=== PATIENT | female | born 1950 | race Caucasian/White ===

== ENCOUNTER → 2017-06-01 07:43 | Outpatient (CLI) | payer MEDICARE, OTHER, SELFPAY ==
--- NOTE | 2017-06-01 07:46 | CT_ITS ---
STUDY: CT ABDOMEN WITHOUT CONTRAST REASON FOR EXAM: Female, 67 years old. History of adrenal adenoma. RADIATION DOSAGE (If Supplied By Facility): CTDIvol = ( 24.17 ) mGy, DLP = ( 562.74 ) mGycm TECHNIQUE: Transaxial images were obtained without intravenous contrast, and oral contrast. Sagittal and coronal images were reconstructed. Individualized dose optimization techniques were used for this CT. COMPARISON: Comparison is made with prior study dated November 20, 2016. FINDINGS: The visualized lung bases are unremarkable. Stable thickening of the right side of the pericardium inferiorly. Normal liver. There are surgical clips in the gallbladder fossa consistent with a prior cholecystectomy. Normal spleen. Normal pancreas. There is a small, circumscribed, smooth, low attenuation left adrenal mass, consistent with an adrenal adenoma. This measures 2.2 cm. Normal right adrenal gland. Normal right kidney. Normal left kidney. There is a small hiatal hernia. Normal small intestine. Normal colon. The appendix is visualized and appears normal. Normal abdominal aorta. Normal inferior vena cava. Normal retroperitoneum. Normal abdominal wall. Normal osseous structures. CT/Abdomen without IV Contrast IMPRESSION: Stable left adrenal nodule most likely representing adenoma. Electronically Signed: Charles Das MD at 10:52 EST Tel [phone], Service support ,
== END ==
PROVIDERS: Family Provider Family Medicine; PCP Family Medicine; Visit Provider Family Medicine
DX: D35.00 Benign neoplasm of unspecified adrenal gland (principal)
CPT/HCPCS: 74150

== ENCOUNTER → 2017-07-21 09:47 | Outpatient (CLI) | payer MEDICARE, OTHER, SELFPAY ==
--- NOTE | 2017-07-21 09:55 | HPBI_ITS ---
MAMMOGRAPHY - BILATERAL SCREENING REASON FOR EXAM: Female, 67 years old. Routine annual screening examination. PERTINENT HISTORY: Grandmother with breast cancer. TECHNIQUE: Digital bilateral breast akira (3D mammographic acquisition) in the CC and MLO projections. 2-D mediolateral oblique (MLO) and craniocaudad (CC) views of both breasts were obtained. CAD: Full Field Digital Mammography with Computer Added Detection was performed. COMPARISON: Comparison is made with prior study dated March 11, 2016 and March 18, 2013. FINDINGS: Breast Composition: There are scattered areas of fibroglandular density. There are no dominant masses or suspicious calcifications. No other significant abnormalities are identified. There has been no significant change since the prior study. HPBI/SCREENING MAMM (CAD), BILAT IMPRESSION: Stable bilateral screening mammogram. Yearly follow-up mammogram recommended. (A) ASSESSMENT CATEGORY: BIRADS Category 1: Negative. A letter regarding these results will be sent to the patient by the facility within 30 days. Approximately 10% of breast cancers are not detected by mammography. A normal mammogram should not delay biopsy of a clinically suspicious abnormality. [id number] Electronically Signed: Charles Das MD at 12:27 EDT Tel [phone], Service support ,
== END ==
PROVIDERS: Family Provider Family Medicine; PCP Family Medicine; Visit Provider Family Medicine
DX: Z12.31 Encounter for screening mammogram for malignant neoplasm of breast (principal)
CPT/HCPCS: 77063; 77067

== ENCOUNTER → 2018-03-23 08:31 | Outpatient (CLI) | payer MEDICARE, OTHER, SELFPAY ==
[2018-03-23 11:03] LABS: Anion Gap 8 (5-15); BUN 13 mg/dL (7-18); BUN/Creat Ratio 11.9 RATIO (10-20); Calcium,Total 8.7 mg/dL (8.5-10.1); Chloride 106 mmol/L (98-107); Cholesterol 209 mg/dL (200); Creatinine, Serum 1.09 mg/dL (0.55-1.02); EST Glomerular Filtration Rate 53 mL/min (>60); Est Glom Filt Rate - Afr Amer 65 mL/min (>60); Glucose 120 mg/dL (74-106); High Density Lipoprotein 54 mg/dL; Potassium 4.1 mmol/L (3.5-5.1); Sodium Level 143 mmol/L (136-145); Triglycerides 128 mg/dL; Very Low Density Lipoprotein 26 mg/dL (5-40)
[2018-03-23 11:07] LABS: Hemoglobin A1c 6.6 % (4.2-6.3)
== END ==
PROVIDERS: Family Provider Family Medicine; PCP Family Medicine; Referring Provider Family Medicine; Visit Provider Family Medicine
DX: E11.9 Type 2 diabetes mellitus without complications (principal); I10 Essential (primary) hypertension
CPT/HCPCS: 36415; 80048; 80061; 83036

== ENCOUNTER → 2018-10-12 07:13 | Outpatient (CLI) | payer MEDICARE, OTHER, SELFPAY ==
--- NOTE | 2018-10-12 07:16 | BI_ITS ---
MAMMOGRAPHY - BILATERAL SCREENING REASON FOR EXAM: Female, 68 years old. Routine annual screening examination. PERTINENT HISTORY: Grandmother with breast cancer. TECHNIQUE: Digital bilateral breast remi (3D mammographic acquisition) in the CC and MLO projections. 2-D mediolateral oblique (MLO) and craniocaudad (CC) views of both breasts were obtained. CAD: Full Field Digital Mammography with Computer Added Detection was performed. COMPARISON: Comparison is made with prior study dated July 21, 2017 and March 11, 2016. FINDINGS: Breast Composition: There are scattered areas of fibroglandular density. There are no dominant masses or suspicious calcifications. No other significant abnormalities are identified. There has been no significant change since the prior study. BI/SCREEN MAMM (CAD) W/REMI BILAT IMPRESSION: Stable bilateral screening mammogram. Yearly follow-up mammogram recommended. (A) ASSESSMENT CATEGORY: BIRADS Category 1: Negative. A letter regarding these results will be sent to the patient by the facility within 30 days. Approximately 10% of breast cancers are not detected by mammography. A normal mammogram should not delay biopsy of a clinically suspicious abnormality. [id number] Electronically Signed: Charles Das, at 9:17 EDT , Service support ,
== END ==
PROVIDERS: Family Provider Family Medicine; PCP Family Medicine; Referring Provider Family Medicine; Visit Provider Family Medicine
DX: Z12.31 Encounter for screening mammogram for malignant neoplasm of breast (principal); Z80.3 Family history of malignant neoplasm of breast
CPT/HCPCS: 77063; 77067

== ENCOUNTER → 2020-06-05 10:18 | Outpatient (CLI) | payer MEDICARE, OTHER, SELFPAY ==
[2020-06-05 12:28] LABS: ALB/GLOB Ratio 0.9 RATIO (0.9-2.4); AST(SGOT) 15 U/L (15-37); Alanine Aminotransfer ALT/SGPT 32 U/L (13-56); Albumin, Serum 3.6 g/dL (3.2-5.0); Alkaline Phosphatase 91 U/L (45-117); Anion Gap 6 (5-15); BUN 11 mg/dL (7-18); BUN/Creat Ratio 10.7 RATIO (10-20); Chloride 107 mmol/L (98-107); Cholesterol 231 mg/dL (200); Creatinine, Serum 1.03 mg/dL (0.55-1.02); EST Glomerular Filtration Rate 57 mL/min (>60); Est Glom Filt Rate - Afr Amer 69 mL/min (>60); Globulin 4.2 g/dL (2.2-4.2); Glucose 159 mg/dL (74-106); High Density Lipoprotein 59 mg/dL; Potassium 3.5 mmol/L (3.5-5.1); Protein, Total 7.8 g/dL (6.4-8.2); Sodium Level 140 mmol/L (136-145); Triglycerides 145 mg/dL; Very Low Density Lipoprotein 29 mg/dL (5-40)
[2020-06-05 12:36] LABS: Hemoglobin A1c 7.1 % (3.8-5.6)
[2020-06-05 12:54] LABS: Microalbumin,Random Urine 6.3 mg/L (NO RANGE EST.); Microalbumin:Creatinine Ratio 12.1 mg/g CRE (<30 mg/g CRE)
== END ==
PROVIDERS: PCP Family Medicine; Referring Provider Family Medicine; Visit Provider Family Medicine
DX: I10 Essential (primary) hypertension (principal); E11.9 Type 2 diabetes mellitus without complications
CPT/HCPCS: 36415; 80053; 80061; 82043; 82570; 83036

== ENCOUNTER → 2020-12-25 11:03 | Outpatient (CLI) | payer MEDICARE, OTHER, SELFPAY ==
[2020-12-25 13:04] LABS: AST(SGOT) 12 U/L (15-37); Alanine Aminotransfer ALT/SGPT 22 U/L (13-56); Cholesterol 201 mg/dL (200); High Density Lipoprotein 59 mg/dL; Triglycerides 114 mg/dL; Very Low Density Lipoprotein 23 mg/dL (5-40)
== END ==
PROVIDERS: PCP Family Medicine; Referring Provider Family Medicine; Visit Provider Family Medicine
DX: E11.69 Type 2 diabetes mellitus with other specified complication (principal); E78.5 Hyperlipidemia, unspecified
CPT/HCPCS: 36415; 80061; 84450; 84460

== ENCOUNTER → 2021-01-31 13:37 | Outpatient (CLI) | payer MEDICARE, OTHER, SELFPAY ==
--- NOTE | 2021-01-31 13:48 | BI_ITS ---
MAMMOGRAPHY - BILATERAL SCREENING REASON FOR EXAM: Female, 70 years old. Routine annual screening examination. PERTINENT HISTORY: Grandmother with breast cancer. TECHNIQUE: Digital bilateral breast remi (3D mammographic acquisition) in the CC and MLO projections. 2-D mediolateral oblique (MLO) and craniocaudad (CC) views of both breasts were obtained. CAD: Full Field Digital Mammography with Computer Added Detection was performed. COMPARISON: Comparison is made with prior study dated 10/12/2018 and 07/21/2017. FINDINGS: Breast Composition: There are scattered areas of fibroglandular density. There are no dominant masses or suspicious calcifications. Focal area of asymmetry is seen in the upper deep lateral aspect of the right breast. The patient will be recalled for 90 degree lateral view of the right breast as well as compression spot views in the craniocaudad projection. No other significant abnormalities are identified. BI/SCRN MAMM (CAD)W/REMI BILAT IMPRESSION: Asymmetry in the upper outer aspect of the right breast as described. The patient will be recalled for additional views. Recall Side: Right Breast ASSESSMENT CATEGORY: BIRADS Category 0: Incomplete. Need additional imaging evaluation. A letter regarding these results will be sent to the patient by the facility within 30 days. Approximately 10% of breast cancers are not detected by mammography. A normal mammogram should not delay biopsy of a clinically suspicious abnormality. [id number] Electronically Signed: Charles Das MD at 14:23 EDT , Service support ,
== END ==
PROVIDERS: PCP Family Medicine; Visit Provider Family Medicine
DX: Z12.31 Encounter for screening mammogram for malignant neoplasm of breast (principal)
CPT/HCPCS: 77063; 77067

== ENCOUNTER → 2021-02-08 08:49 | Outpatient (CLI) | payer MEDICARE, OTHER, SELFPAY ==
--- NOTE | 2021-02-08 08:57 | BI_ITS ---
MAMMOGRAPHY - UNILATERAL DIAGNOSTIC: RIGHT BREAST REASON FOR EXAM: Female, 70 years old. ASYMMETRY RT LATERAL BREAST PERTINENT HISTORY: Non-contributory. TECHNIQUE: Digital examination. Mediolateral oblique (MLO) and craniocaudad (CC) views of the breast were obtained. CAD: CAD was not performed on this study. COMPARISON: 01/31/2021 FINDINGS: Breast Composition: There are scattered areas of fibroglandular density. Focal compression views do not confirm mass in the upper outer quadrant right breast most consistent with normal breast parenchyma. No other significant abnormalities are identified. BI/DIAG MAMM W/CAD, UNILAT IMPRESSION: Stable unilateral diagnostic mammogram. ASSESSMENT CATEGORY: BIRADS Category 1: Negative. A letter regarding these results will be sent to the patient by the facility within 30 days. FOLLOW-UP RECOMMENDATION: Yearly follow-up mammogram recommended. (A) Approximately 10% of breast cancers are not detected by mammography. A normal mammogram should not delay biopsy of a clinically suspicious abnormality. Electronically Signed: Enoc Alvarez MD at 9:38 EDT Tel , Service support ,
== END ==
PROVIDERS: PCP Family Medicine; Referring Provider Family Medicine; Visit Provider Family Medicine
DX: R92.8 Other abnormal and inconclusive findings on diagnostic imaging of breast (principal)
CPT/HCPCS: 77061; 77065; G0279

== ENCOUNTER → 2021-12-23 | Outpatient (CLI) | payer MEDICARE, OTHER, SELFPAY ==
[2021-12-23 12:46] LABS: AST(SGOT) 16 U/L (15-37); Alanine Aminotransfer ALT/SGPT 27 U/L (13-56); Albumin, Serum 3.4 g/dL (3.2-5.0); Alkaline Phosphatase 72 U/L (45-117); Anion Gap 4 (5-15); BUN 12 mg/dL (7-18); BUN/Creat Ratio 12.3 RATIO (10-20); Bilirubin, Direct 0.08 mg/dL (0.00-0.30); Calcium,Total 8.8 mg/dL (8.5-10.1); Chloride 105 mmol/L (98-107); Cholesterol 206 mg/dL (200); Creatinine, Serum 0.97 mg/dL (0.55-1.02); EST Glomerular Filtration Rate 60 mL/min (>60); Est Glom Filt Rate - Afr Amer 73 mL/min (>60); Globulin 3.9 g/dL (2.2-4.2); Glucose 114 mg/dL (74-106); High Density Lipoprotein 62 mg/dL; Potassium 3.7 mmol/L (3.5-5.1); Protein, Total 7.3 g/dL (6.4-8.2); Sodium Level 139 mmol/L (136-145); Triglycerides 114 mg/dL; Very Low Density Lipoprotein 23 mg/dL (5-40)
== END | disposition home or self-care (01) ==
LOC: MFPLAB 09:55
PROVIDERS: PCP Family Medicine; Visit Provider Family Medicine
DX: E11.9 Type 2 diabetes mellitus without complications (principal)
CPT/HCPCS: 36415; 80048; 80061; 80076

== ENCOUNTER 2022-02-17 12:34 | Emergency (ER) | payer MEDICARE, OTHER, SELFPAY ==
[2022-02-17 12:35] VITALS: BP 179/84; PULSE 84; RESP 16; TEMP 35.9; O2SAT 96; BMI 27.3
--- NOTE | 2022-02-17 12:44 | RAD_ITS ---
STUDY: X-RAY - LEFT WRIST REASON FOR EXAM: Female, 71 years old. Wrist pain following a fall. TECHNIQUE: 3 view(s) of the wrist were obtained. COMPARISON: None. FINDINGS: Normal visualized distal radius and ulna. Normal radiocarpal articulation. Normal distal radioulnar articulation. Normal carpal bones. Normal carpal articulations. Normal carpometacarpal articulation of the thumb. Normal second through fifth carpometacarpal articulations. Normal visualized metacarpal bones. Soft tissue swelling. RAD/Wrist min 3 Views IMPRESSION: Soft tissue swelling. Electronically Signed: Charles Das MD at 13:21 EDT ,
--- NOTE | 2022-02-17 12:51 | ED.VIS.FALL ---
HPI HPI - Fall History of Present Illness Chief Complaint: Fall Informant: patient Occured/Mechanism Occurred: Today Pain/Injury Pain Location: upper extremity and lower extremity Quality of Pain: Aching Current Severity: Mild Maximum Severity: Moderate Narrative Narrative: Patient presents secondary to fall at home. She reportedly fell after tripping on a rug at home. She complains of pain to her left wrist as well as her right wilson. She did not strike her head. She is not on anticoagulants. She is right-hand dominant. PFSH PFSH Medical History Hx of gastroesophageal reflux (GERD) Hypertension Home Medications lisinopril 10 mg tablet 10 mg PO DAILY 02/17/22 [History Last Taken Unknown] pantoprazole 40 mg tablet,delayed release 40 mg PO DAILY 02/17/22 [History Last Taken Unknown] Allergy/AdvReac Type Severity Reaction Status Date / Time metoprolol [From Toprol XL] AdvReac Other Verified 02/17/22 12:34 Social History Smoking Status: Never smoker ROS ROS ED Constitutional Constitutional ED: Denies chills or fever(s) Eyes Eyes: Denies change in vision or discharge from eye(s) ENT ENT ED: Denies discharge from eye(s), rhinorrhea or sore throat Cardiovascular Cardiovascular: Denies chest pain or palpitations Respiratory/Chest Respiratory/Chest: Denies cough or dyspnea Gastrointestinal Gastrointestinal: Denies abdominal pain, diarrhea, nausea or vomiting Genitourinary Genitourinary ED: Denies dysuria Musculoskeletal Musculoskeletal: Reports extremity pain; Denies back pain Integumentary Denies Abrasions or rash Neurologic Neurologic: Denies headache(s), paresthesias or weakness Psychiatric Psychiatric: Denies anxiety or depression Allergic/Immunologic Allergic/Immunologic ED: Denies lip swelling or urticaria EXAM Physical Exam Const Vital Signs: 02/17/22 12:35 02/17/22 13:30 Temperature 96.6 F L Temperature Source Temporal Pulse Rate 84 Respiratory Rate 16 Respiratory Effort Normal Non-Labored Respiratory Depth Normal Respiratory Pattern Normal Blood Pressure 179/84 H Blood Pressure Mean 115 Pulse Ox 96 Oxygen Delivery Method Room Air Room Air Positive well nourished and well developed General Appearance ED: well developed HEENT Reports normocephalic atraumatic Eyes PERRL and EOMs intact bilaterally Neck full ROM and no lymphadenopathy Chest Wall inspection of chest normal and palpation of chest normal Resp normal respiratory effort and clear to auscultation bilaterally Cardio regular rate and regular rhythm GI non-tender Back/Spine no CVA tenderness Extremity Extremity Narrative: Mild tender palpation of the left wrist. Good range of motion and cap refill distally. No significant edema or deformity. Mild tenderness to palpation on the lateral portion of the right lower leg. No edema or ecchymosis noted. Good range of motion at the knee and ankle. Neuro oriented x3, moves all extremities, no focal motor deficits and no sensory deficits noted Psych mental status grossly normal MDM MDM MDM Narrative Medical decision making narrative: X-rays of the left wrist and right tib-fib obtained. Radiography Diagnostic Testing: Clinical Impression(s) from Imaging Studies Wrist X-Ray 02/17/22 12:44 IMPRESSION: Soft tissue swelling. Electronically Signed: Charles Das MD at 13:21 EDT , Tibia/Fibula X-Ray 02/17/22 13:00 IMPRESSION: No acute abnormality is seen. Calcaneal spurs. Electronically Signed: Charles Das MD at 13:23 EDT , Treatment and Re-Evaluation Narrative: X-rays per my interpretation reveal no acute fracture. Radiology interpretation is reviewed. Aldo wrap is applied to the left wrist. Patient will continue supportive care. Return instructions provided. Discharge Plan Triage Chief Complaint: Fall ED Provider: Krystin Summers Dx/Rx/DC Orders Clinical Impression: Fall, Left wrist sprain, Contusion of leg, right Instructions: ED Mechanical Fall, ED Muscle Strain, Extremity, ED Wrist Sprain Prescriptions: No Action pantoprazole 40 mg tablet,delayed release (DR/EC) 40 mg PO DAILY Label Comments: TAKE 1 TABLET BY MOUTH ONCE DAILY lisinopril 10 mg tablet 10 mg PO DAILY Label Comments: TAKE 1 TABLET BY MOUTH ONCE DAILY Primary Care Provider: Bria Westbrook Referrals: Bria Westbrook MD [Primary Care Provider] - As Needed Disposition Disposition: Home, Self Care
--- NOTE | 2022-02-17 13:00 | RAD_ITS ---
STUDY: X-RAY - RIGHT TIBIA AND FIBULA REASON FOR EXAM: Female, 71 years old. Pain following injury. TECHNIQUE: 4 view(s) of the tibia and fibula were obtained. COMPARISON: None. FINDINGS: Normal visualized tibia. Normal visualized fibula. Calcaneal spurs. The soft tissue structures are unremarkable. RAD/Tibia & Fibula 2 Views IMPRESSION: No acute abnormality is seen. Calcaneal spurs. Electronically Signed: Charles Das MD at 13:23 EDT ,
[2022-02-17 14:22] VITALS: RESP 16
== END 2022-02-17 14:28 | disposition home or self-care (01) ==
PROVIDERS: Emergency Provider Emergency Medicine; PCP Family Medicine; Visit Provider Emergency Medicine
DX: S63.92XA Sprain of unspecified part of left wrist and hand, initial encounter (principal); S80.11XA Contusion of right lower leg, initial encounter; I10 Essential (primary) hypertension; Z79.899 Other long term (current) drug therapy; W01.0XXA Fall on same level from slipping, tripping and stumbling without subsequent striking against object, initial encounter
CPT/HCPCS: 73110; 73590; 99282

== ENCOUNTER → 2022-02-20 | Outpatient (CLI) | payer MEDICARE, OTHER, SELFPAY ==
--- NOTE | 2022-02-20 12:51 | BI_ITS ---
MAMMOGRAPHY - BILATERAL SCREENING 3-D TOMOSYNTHESIS REASON FOR EXAM: Female, 71 years old. Routine screening PERTINENT HISTORY: Grandmother with breast cancer.. TECHNIQUE: 2-D mammograms and 3-D Tomosynthesis of the breast (s) were performed. CAD was performed. COMPARISON: 2017 FINDINGS: The breast composition is composed of scattered fibroglandular density. Scattered benign calcifications are seen. No dense spiculated masses or suspicious microcalcifications are identified. No architectural distortion is identified. There is no skin thickening or retraction. There has been no significant change since the prior study. BI/SCRN MAMM (CAD)W/REMI BILAT IMPRESSION: No mammographic signs of malignancy. Routine yearly mammograms recommended. ASSESSMENT CATEGORY: BIRADS Category 2: Benign. A letter regarding these results will be sent to the patient by the facility within 30 days. FOLLOW UP RECOMMENDATION: Yearly follow up mammogram recommended. (A) Approximately 10% of breast cancers are not detected by mammography. A normal mammogram should not delay biopsy of a clinically suspicious abnormality. Electronically Signed: Boni Bonilla MD at 13:46 EDT ,
--- NOTE | 2022-02-20 12:55 | BD_ITS ---
STUDY: DUAL ENERGY X-RAY ABSORPTIOMETRY / DXA REASON FOR EXAM: Female, 71 years old. [id number] TECHNIQUE: Bone Mineral Density (BMD) measurements of lumbar spine and bilateral hips were obtained. COMPARISON: None. FINDINGS: Lumbar Spine (L1-L4): g/cm2 (0.924) / T-score (-1.1) / Z-score (1.0) Findings are suggestive of osteopenia with a low fracture risk. Left Femur Total: g/cm2 (0.818) / T-score (-1.0) / Z-score (0.5) Left Femoral Neck: g/cm2 (0.679) / T-score (-1.5) / Z-score (0.3) Right Femur Total: g/cm2 (0.861) / T-score (-0.7) / Z-score (0.8) Right Femoral Neck: g/cm2 (0.722) / T-score (-1.1) / Z-score (0.8) BD/Dexa Bone Density Study IMPRESSION: The patient is considered osteopenic as outlined below according to World Dylan Organization (WHO) criteria with a low fracture risk. Reference Information: The T-score is the number of standard deviations above or below the standard which is normal for young adults at their peak bone mineral density. The World Health Organization (WHO) interprets the T-scores as follows: Above -1 Normal bone density Between -1 and -2.5 Osteopenia Equal to / or below -2.5 Osteoporosis As a practical clinical guideline, osteopenia may be graded as follows: Mild -1 through -1.5 Moderate -1.6 through -2.0 Severe -2.1 through -2.4 The Z-score is the number of standard deviations above or below age-matched controls. A Z-score of less than -1.5 would be considered abnormal. References: 1. NIH Osteoporosis and Related Bone Diseases www osteo.org 2. International Society for Clinical Densitometry www iscd.org 3. National Osteoporosis Foundation www nof.org Electronically Signed: Charles Das MD at 14:09 EDT ,
== END | disposition home or self-care (01) ==
LOC: OPBD 12:49
PROVIDERS: PCP Family Medicine; Visit Provider Family Medicine
DX: N95.9 Unspecified menopausal and perimenopausal disorder (principal); Z12.31 Encounter for screening mammogram for malignant neoplasm of breast
CPT/HCPCS: 77063; 77067; 77080

== ENCOUNTER → 2022-12-30 | Outpatient (CLI) | payer MEDICARE, OTHER, SELFPAY ==
[2022-12-30 12:36] LABS: AST(SGOT) 13 U/L (15-37); Alanine Aminotransfer ALT/SGPT 24 U/L (13-56); Albumin, Serum 3.6 g/dL (3.2-5.0); Alkaline Phosphatase 83 U/L (45-117); Anion Gap 6 (5-15); BUN 12 mg/dL (7-18); BUN/Creat Ratio 11.4 RATIO (10-20); Bilirubin, Direct 0.09 mg/dL (0.00-0.30); Calcium,Total 8.9 mg/dL (8.5-10.1); Chloride 106 mmol/L (98-107); Cholesterol 212 mg/dL (200); Creatinine, Serum 1.05 mg/dL (0.55-1.02); EST Glomerular Filtration Rate 55 mL/min (>60); Est Glom Filt Rate - Afr Amer 67 mL/min (>60); Globulin 3.8 g/dL (2.2-4.2); Glucose 149 mg/dL (74-106); High Density Lipoprotein 64 mg/dL; Potassium 3.8 mmol/L (3.5-5.1); Protein, Total 7.4 g/dL (6.4-8.2); Sodium Level 140 mmol/L (136-145); Triglycerides 95 mg/dL; Very Low Density Lipoprotein 19 mg/dL (5-40)
== END | disposition home or self-care (01) ==
LOC: MFPLAB 10:01
PROVIDERS: PCP Family Medicine; Visit Provider Family Medicine
DX: E11.9 Type 2 diabetes mellitus without complications (principal)
CPT/HCPCS: 36415; 80048; 80061; 80076

== ENCOUNTER → 2023-02-26 | Outpatient (CLI) | payer MEDICARE, OTHER, SELFPAY ==
--- NOTE | 2023-02-26 09:11 | BI_ITS ---
MAMMOGRAPHY - BILATERAL SCREENING REASON FOR EXAM: Female, 72 years old. Routine annual screening examination. PERTINENT HISTORY: Grandmother with breast cancer. TECHNIQUE: Digital bilateral breast remi (3D mammographic acquisition) in the CC and MLO projections. 2-D mediolateral oblique (MLO) and craniocaudad (CC) views of both breasts were obtained. CAD: Full Field Digital Mammography with Computer Added Detection was performed. COMPARISON: Comparison is made with prior study February 20, 2022 and February 08, 2021. FINDINGS: Breast Composition: There are scattered areas of fibroglandular density. There are no dominant masses or suspicious calcifications. No other significant abnormalities are identified. There has been no significant change since the prior study. BI/SCRN MAMM (CAD)W/REMI BILAT IMPRESSION: Stable bilateral screening mammogram. Yearly follow-up mammogram recommended. (A) ASSESSMENT CATEGORY: BIRADS Category 1: Negative. A letter regarding these results will be sent to the patient by the facility within 30 days. Approximately 10% of breast cancers are not detected by mammography. A normal mammogram should not delay biopsy of a clinically suspicious abnormality. [id number] Electronically Signed: Charles Das MD at 10:31 EDT ,
== END | disposition home or self-care (01) ==
LOC: OPBI 09:10
PROVIDERS: PCP Family Medicine; Referring Provider Family Medicine; Visit Provider Family Medicine
DX: Z12.31 Encounter for screening mammogram for malignant neoplasm of breast (principal)
CPT/HCPCS: 77063; 77067

== ENCOUNTER → 2023-12-22 | Outpatient (CLI) | payer MEDICARE, OTHER, SELFPAY ==
[2023-12-22 12:54] LABS: Protein, Urine (Random) < 6.0 mg/dL (<11.9)
[2023-12-22 13:12] LABS: ALB/GLOB Ratio 0.9 RATIO (0.9-2.4); AST(SGOT) 20 U/L (15-37); Alanine Aminotransfer ALT/SGPT 25 U/L (13-56); Albumin, Serum 3.5 g/dL (3.2-5.0); Alkaline Phosphatase 85 U/L (45-117); Anion Gap 5 (5-15); BUN 13 mg/dL (7-18); Bilirubin, Direct 0.13 mg/dL (0.00-0.30); Calcium,Total 9.4 mg/dL (8.5-10.1); Chloride 107 mmol/L (98-107); Cholesterol 233 mg/dL (200); Creatinine, Serum 1.08 mg/dL (0.55-1.02); EST Glomerular Filtration Rate 53 mL/min (>60); Est Glom Filt Rate - Afr Amer 64 mL/min (>60); Globulin 4.1 g/dL (2.2-4.2); Glucose 113 mg/dL (74-106); High Density Lipoprotein 64 mg/dL; Potassium 3.8 mmol/L (3.5-5.1); Protein, Total 7.6 g/dL (6.4-8.2); Sodium Level 139 mmol/L (136-145); Triglycerides 116 mg/dL; Very Low Density Lipoprotein 23 mg/dL (5-40)
== END | disposition home or self-care (01) ==
PROVIDERS: PCP Family Medicine; Visit Provider Family Medicine
DX: E11.59 Type 2 diabetes mellitus with other circulatory complications (principal); R00.2 Palpitations
CPT/HCPCS: 36415; 80053; 80061; 82248; 82570; 84156; 84443

== ENCOUNTER → 2024-03-04 | Outpatient (CLI) | payer MEDICARE, OTHER, SELFPAY ==
[2024-03-04 11:08] LABS: Cholesterol 160 mg/dL (200); High Density Lipoprotein 70 mg/dL; Triglycerides 87 mg/dL; Very Low Density Lipoprotein 17 mg/dL (5-40)
== END | disposition home or self-care (01) ==
LOC: MTLAB 08:57
PROVIDERS: PCP Family Medicine; Referring Provider Family Medicine; Visit Provider Family Medicine
DX: E78.00 Pure hypercholesterolemia, unspecified (principal)
CPT/HCPCS: 36415; 80061

== ENCOUNTER → 2024-07-04 | Outpatient (CLI) | payer MEDICARE, OTHER, SELFPAY ==
--- NOTE | 2024-07-04 13:12 | BI_ITS ---
PROCEDURE: SCRN MAMM (CAD)W/REMI BILAT REASON FOR EXAM: F, Age 74 y/o, maternal grandmother with breast cancer. Routine annual follow-up. TECHNIQUE: Bilateral screening digital breast tomosynthesis with 2D and 3D images. Computer aided detection. COMPARISON: Prior exam(s) dating back to February 26, 2023.. FINDINGS: There are scattered areas of fibroglandular density. Stable examination. No suspicious masses, areas of developing architectural distortion, or suspicious calcifications. BI/SCRN MAMM (CAD)W/REMI BILAT IMPRESSION: BI-RADS 2: BENIGN. RECOMMEND ANNUAL MAMMOGRAPHIC SCREENING. Follow-up code: Routine Follow-up The patient will be notified of the results by letter. Reading Location: [id number]
== END | disposition home or self-care (01) ==
LOC: OPBI 13:11
PROVIDERS: PCP Family Medicine
DX: Z12.31 Encounter for screening mammogram for malignant neoplasm of breast (principal)
CPT/HCPCS: 77063; 77067

== ENCOUNTER → 2024-07-18 | Outpatient (CLI) | payer MEDICARE, OTHER, SELFPAY ==
--- NOTE | 2024-07-18 13:26 | RAD_ITS ---
PROCEDURE: Pelvis and right hip radiographs, three views 07/18/2024 REASON FOR EXAM: PAIN TECHNIQUE: Three views of the pelvis and right hip were obtained. COMPARISON: None. FINDINGS: Three views of the pelvis and right hip were obtained. The bones are osteopenic. Degenerative changes lower lumbar spine. SI joints are intact. The pelvis and proximal femurs are intact. Mild degenerative changes in the hip joints. No acute fracture or dislocation of the right hip. RAD/HIP, UNI W/ Pelvis 2-3 Views IMPRESSION: Osteopenia. No acute bony abnormality of the pelvis/right hip. Mild degenerative changes in the hip joints. If there is persistent pain or clinical concern, follow-up MRI evaluation may b e helpful. Reading Location: [facility]
== END | disposition home or self-care (01) ==
LOC: MTRAD 13:26
PROVIDERS: PCP Family Medicine; Referring Provider Family Medicine; Visit Provider Family Medicine
DX: M16.11 Unilateral primary osteoarthritis, right hip (principal)
CPT/HCPCS: 73502

== ENCOUNTER → 2024-08-03 | Outpatient (CLI) | payer MEDICARE, OTHER, SELFPAY ==
--- NOTE | 2024-08-03 13:22 | BD_ITS ---
PROCEDURE: DEXA BONE DENSITY STUDY 08/03/2024 REASON FOR EXAM: F, age 74 y/o . Postmenopausal. TECHNIQUE: DXA scan of the lumbar spine and both hips, using make and model. REFERENCE LINKS: ISCD Adult Positions COMPARISON: Comparison is made with prior study dated February 20, 2022 FINDINGS: BMD and T-SCORES Lumbar spine: 0.872 g/cm2, T-Score -1.3 L1 through L4 Change from prior: Worsening by 1.4% Left femoral neck: 0.686 g/cm2, T-Score -1.5 Femoral neck comparison data not recommended for monitoring change. Left total hip: 0.804 g/cm2, T-Score -1.1 Change from prior: Loss of 1.8% Right femoral neck: 0.711 g/cm2, T-Score -1.2 Femoral neck comparison data not recommended for monitoring change. Right total hip: 0.817 g/cm2, T-Score -1.0 Change from prior: Loss of 5.1% Fracture Risk Calculation: FRAX (10-year Fracture Risk) Score: FRAX scores should never be reported in a patient with osteoporosis on DEXA or for any patient that is on bone medication. The patient doesmeet the pharmacological treatment recommendations for prevention of osteoporosis BD/Dexa Bone Density Study IMPRESSION: OSTEOPENIA. Recommend follow-up as clinically warranted. Reading Location: [place] [id number]
== END | disposition home or self-care (01) ==
LOC: OPBD 13:21
PROVIDERS: PCP Family Medicine; Referring Provider Family Medicine; Visit Provider Family Medicine
DX: M81.0 Age-related osteoporosis without current pathological fracture (principal)
CPT/HCPCS: 77080

== ENCOUNTER 2024-09-29 10:00 | Outpatient (RCR) | payer MEDICARE, OTHER, SELFPAY ==
--- NOTE | 2024-08-17 09:52 | HP.PTEVAL_ITS ---
Patient's Visit Information Visit Information Visit Information: AMNA SUN is a 74 year old F referred to Physical Therapy by TIFFANY Spencer with a diagnosis of R hip OA. Date of Evaluation: 08/17/24 Physical Therapist: Trevor Ramsay, MIGUELT, OCS, CSCS Visit Plan Frequency: 2x /Week Duration: 4-6 Weeks Plan: 2x/week for 3-6 weeks for 1. US nonthrmal to trochanteric area, rollout ITB and quad and streetch, leg pull 2. core and hip stabs to HEP TENS and ice if needed(painful at rest) Progress to I overall general ex and walking if tolerated. IE HP: sidelying ITB stretch adn prone quad stretch 30 5x 2x/day and avoid aggravating activitiy, appropriate sleep position with pillow bw knees and ankles. Subjective Subjective: R hip problems, not awful but x rays showed mild OA. Have a two story house and does stairs all day which are painful and require railing. Can't walk more than a block and half and she used to walk alot. Pain is lateral. Comfortable at rest.has to get up every half hour. Not employed. Spends day being very active with grandkids and two pets, works at [employer]. Is limited being on feet with these things. Limps. Can't walk anymore which was main form of ex. Sleeping is interrupted, hurts to sleep on L side but can't sleep on R due to vertigo. Pain R hip: Pain Intensity (Out of 10): 0 Pain Intensity Range: 0 and 5 Objective Objective: Walking i today without antalgia, transfers without pain table and chair. Steps reciprocally with rail but pain ascending with R 7/10 Max tender R greater trochanter and min into ITB focally. HIP AROM symmetrical and 110 flexion, 50 er, 15 IR and no pain with these. - AHMET, - MARCOSIR B. Max tight quads B adn mod tight ITB B with + saumya test. B knees adn ankles WFL ROM and strength 4/5...hip strength flexion 4- and abd 3+ and ext 3+, has pain with R hip abd. Max core weakneess and instability with seated testing of hips without UE stabilization. reflexes 2/3 patella adn achilles B sensation WNL to gross light touch. Balance/Special Test Scores Lower Extremity Functional Score: 54 Goals Goal 1:: patient feel lateral hip pain is 75% better at 2/10 at worst and manageable Goal Time Frame: 4-6 Weeks Goal 2:: steps without discomfort Goal Time Frame: 4-6 Weeks Goal 3:: slep without intrruption at night Goal Time Frame: 4-6 Weeks Goal 4:: I appropriate HPE to minimize future problems Goal Time Frame: 4-6 Weeks Goal 5:: LEFS score 50 Goal Time Frame: 4-6 Weeks Rehabilitation Potential Physical Therapy Diagnosis: R hip pain and inflammed in GT area, ppossible bursitis limiting comfortable funciton. Rehabilitation Potential: Fair Anticipated Interventions Patient/Client Instruction: Educate patient on: Condition and Plan of Care For the Purpose of:: To decrease pain, To decrease swelling/inflammation, To improve nutrient delivery to tissue, To improve muscle performance and motor function and To increase tolerance to activity/condition/position Therapeutic Exercise to Include: Strength training, Flexibilty training, Passive ROM and Active ROM For the Purpose of:: To decrease pain, To increase ROM, To improve nutrient delivery to tissue, To improve muscle performance and motor function, To increase tolerance to activity/condition/position and To improve gait and locomotor functions Manual Therapy Techniques to Include: Mobilization, Passive ROM and Soft tissue mobilization For the Purpose of:: To decrease pain, To increase ROM, To improve nutrient delivery to tissue, To improve muscle performance and motor function, To increase tolerance to activity/condition/position and To improve ability of physical actions for home/community/work/leisure TENS: Yes Cryotherapy (ice pack, ice massage): Yes Ultrasound (thermal/non thermal): Yes (nonthermal) For the Purpose of:: To decrease pain, To decrease swelling/inflammation and To improve nutrient delivery to tissue Text: Thank you for the opportunity to evaluate your patient. For Medicare and Medicare HMO plans, please review the plan of care and approve it. It will need to be FAXED BACK to us at [phone] for Medicare purposes. For Medicare only, by signing this I certify the plan of care. Please let me know if there are questions or concerns regarding this plan of care. Physician Signature: Date:
--- NOTE | 2024-09-29 10:56 | HP.PTDCSUM ---
Discharge Summary D/C summary: It has been my pleasure to treat AMNA SUN referred by TIFFANY Spencer, with the diagnosis of R hip OA for a total of 13 visit(s). Discharge Date: 09/29/24 Please see the following information for a summary of their discharge status. Subjective Subjective: No f/u with doctor. Ex didn't help as much as she hoped but is better 40%. Exercises brought a lot of other benefits as well with social/emotional. Doing exercises and feels better after any exercises. Not walking for fitness at home, Able t do 15-20 min but wants 30 min. Pain limits her but that time is better. Will join and come in 3x/week to do exercises. Pain R hip: Pain Intensity (Out of 10): 4 Overall Improvement % Improvement: 40 Objective Objective/Function: good ambulation with slight R hip wekaness but improving, - trendelenberg sign today on R. Back is stiff with movements but funcitonal. 4- hip abd and flexion strength, mnor discomfort R HS with abd testing standing. Goals Goal 1:: patient feel lateral hip pain is 75% better at 2/10 at worst and manageable Goal Progress: 40% Goal 2:: steps without discomfort Goal Progress: Progressing Goal 3:: slep without intrruption at night Goal Progress: Goal Met, stiff in am Goal 4:: I appropriate HPE to minimize future problems Goal Progress: home, gym Goal 5:: LEFS score 50 Goal Progress: Not Progressing Plan Plan: d/c to HEP and gym ex. Pt to contact doctor if pain improvement stops. D/C Information Discharge Comments: pt to continue gym and home strength and stretching and contact doctor if improvement stops or reverses. d/c sentence: If there are questions or concerns regarding this patient's physical therapy, please feel free to call me at [phone]. Thank you for the referral of this patient. Sincerely, Trevor Ramsay, DPT, OCS, CSCS Balance/Gait/Functional tests Balance/Special Test Scores Lower Extremity Functional Score: 38 Improvement % Improvement: 40
== END 2024-09-29 11:11 | disposition home or self-care (01) ==
LOC: PT 10:00
PROVIDERS: PCP Family Medicine
DX: M16.9 Osteoarthritis of hip, unspecified (principal)
CPT/HCPCS: 97035; 97110; 97161; 97164; 97530

== ENCOUNTER → 2025-01-30 | Outpatient (CLI) | payer MEDICARE, OTHER, SELFPAY ==
--- NOTE | 2025-01-30 10:05 | RAD_ITS ---
PROCEDURE: KNEE 4 OR MORE VIEWS 01/30/2025 REASON FOR EXAM: PAIN TECHNIQUE: Procedure Code: RADKN Modality: DX Procedure: KNEE 4 OR MORE VIEWS Laterality: Left COMPARISON: None FINDINGS: LEFT KNEE: There is no evidence of fracture or dislocation. There is mild arthritis of the patellofemoral joint. There is no arthritis of the medial joint space compartment of the knee. There is no arthritis of the lateral joint space compartment of the knee. There is no knee joint effusion. The periarticular soft tissues are normal. RAD/Knee 4 or More Views IMPRESSION: No significant abnormality. Reading Location: [place] [id number]
--- NOTE | 2025-01-30 10:05 | RAD_ITS ---
PROCEDURE: KNEE 4 OR MORE VIEWS 01/30/2025 REASON FOR EXAM: PAIN TECHNIQUE: Procedure Code: RADKN Modality: DX Procedure: KNEE 4 OR MORE VIEWS Laterality: Left COMPARISON: None FINDINGS: LEFT KNEE: There is no evidence of fracture or dislocation. There is mild arthritis of the patellofemoral joint. There is no arthritis of the medial joint space compartment of the knee. There is no arthritis of the lateral joint space compartment of the knee. There is no knee joint effusion. The periarticular soft tissues are normal. RAD/Knee 4 or More Views IMPRESSION: No significant abnormality. Reading Location: [place] [id number]
--- NOTE | 2025-01-30 10:05 | RAD_ITS ---
PROCEDURE: KNEE 4 OR MORE VIEWS 01/30/2025 REASON FOR EXAM: PAIN TECHNIQUE: Procedure Code: RADKN Modality: DX Procedure: KNEE 4 OR MORE VIEWS Laterality: Right COMPARISON: None FINDINGS: RIGHT KNEE: There is no evidence of fracture or dislocation. There is mild arthritis of the patellofemoral joint. There is no arthritis of the medial joint space compartment of the knee. There is no arthritis of the lateral joint space compartment of the knee. There is no knee joint effusion. There is enthesopathy of the patella. The periarticular soft tissues are normal. RAD/Knee 4 or More Views IMPRESSION: NO EFFUSION ACUTE FRACTURE OR DISLOCATION. There is enthesopathy of the patell a. Reading Location: [place] [id number]
--- NOTE | 2025-01-30 10:05 | RAD_ITS ---
PROCEDURE: KNEE 4 OR MORE VIEWS 01/30/2025 REASON FOR EXAM: PAIN TECHNIQUE: Procedure Code: RADKN Modality: DX Procedure: KNEE 4 OR MORE VIEWS Laterality: Right COMPARISON: None FINDINGS: RIGHT KNEE: There is no evidence of fracture or dislocation. There is mild arthritis of the patellofemoral joint. There is no arthritis of the medial joint space compartment of the knee. There is no arthritis of the lateral joint space compartment of the knee. There is no knee joint effusion. There is enthesopathy of the patella. The periarticular soft tissues are normal. RAD/Knee 4 or More Views IMPRESSION: NO EFFUSION ACUTE FRACTURE OR DISLOCATION. There is enthesopathy of the patell a. Reading Location: [place] [id number]
[2025-01-30 13:18] LABS: Creatinine, Urine (random) 52.10 mg/dL (28.00-217.00); Microalbumin,Random Urine < 12.0 mg/L (<20 mg/L)
== END | disposition home or self-care (01) ==
LOC: LABSPEC 09:51 → MTRAD 10:03
PROVIDERS: PCP Family Medicine; Referring Provider Family Medicine; Visit Provider Family Medicine
DX: M25.561 Pain in right knee (principal); E11.69 Type 2 diabetes mellitus with other specified complication; M25.562 Pain in left knee
CPT/HCPCS: 73564; 82043; 82570

== ENCOUNTER → 2025-02-03 | Outpatient (CLI) | payer MEDICARE, OTHER, SELFPAY ==
--- NOTE | 2025-02-03 15:30 | MRI_ITS ---
PROCEDURE: LOWER EXT JOINT ONLY (ROUTINE) 02/03/2025 REASON FOR EXAM: RT HIP PAIN TECHNIQUE: Procedure Code: MRILEJ Modality: MR Procedure: LOWER EXT JOINT ONLY (ROUTINE) Multiplanar and multisequence images were obtained without IV contrast administration. COMPARISON: COMPARISON : FINDINGS: Bones and soft tissues: No evidence of osteonecrosis, fracture, or stress fracture. Mild left and [id number] right trochanteric bursitis. No hip joint effusion. No chondral defect. Mild bone edema in the right posterior acetabulum. No definite SI joint abnormality. Mild pubic symphysis degenerative changes. Lumbar spondylosis and levoscoliosis. No significant marginal osseous ridging about the hips. Ligaments and tendons: Bilateral proximal hamstring tendinosis with partial tearing of both hamstring tendon origins. Distal gluteus medius/minimus tendinosis and partial tearing at the trochanteric attachment sites. No iliopsoas tendon abnormality or muscle strain. No adductor muscle or tendon abnormality. Attenuation and scarring of the ligamenta teres. Pelvic contents: No free fluid. No adenopathy. No mass or abnormal cyst in the pelvis. Sigmoid colonic diverticula. No other intrapelvic abnormality. Labrum: No evidence of labral tear, undermining, or detachment. MRI/Lower Ext Joint Only (Routine) IMPRESSION: Bilateral hamstring and gluteus medius/minimus tendinoses and partial tears. Mild left and [id number] right trochanteric bursitis. Mild bone edema in the posterior right acetabulum, suggesting mild stress relat ed changes or contusion. Lumbar spondylosis and levoscoliosis. Sigmoid colonic diverticula. Reading Location: [facility]
--- OUTSIDE RECORDS SUMMARY | 2025-02-03 15:33 | XMS RPT_ITS | CCD ---
Author Organization [facility] Care Team Providers Care Renewals Representative Name Role Phone Dariana CHACON, Dr. Bria Odom Primary Care Provider [phone] McMorrow TROUBLE TRACER-C, Jefry Attending Provider McMorrow TROUBLE TRACER-C, Jefry Referring Provider Dariana CHACON, Dr. Bria Odom Attending Provider [phone] Bria Westbrook MD Referring Provider [phone] Bria Westbrook Referring Unavailable Jolliff, Bria S Attending Unavailable Jolliff, Bria S Primary Care Unavailable Jolliff, Bria S Referring Unavailable Jolliff, Bria S Attending Unavailable Dariana, Bria S Primary Care Unavailable McMorrow, Jefry Referring Unavailable McMorrow, Jefry Attending Unavailable Jolliff, Bria S Primary Care Unavailable Jolliff, Bria S Referring Unavailable Jolliff, Bria S Attending Unavailable Jolliff, Bria S Primary Care Unavailable Jolliff, Bria S Attending Unavailable Jolliff, Bria S Primary Care Unavailable Jolliff, Bria S Primary Care Unavailable McMorrow, Jefry Referring Unavailable McMorrow, Jefry Attending Unavailable Allergies Allergy Classification Reported Allergen(s) Allergy Type Date of Onset Reaction(s) Facility (8 sources) Metoprolol Drug Allergy 02-17-2022 Other [facility] (1 source) Metoprolol Drug Allergy 02-17-2022 [facility] Repository Medications Current Medications Medication Drug Class(es) Dates Sig (Normalized) Sig (Original) lisinopril 10 mg oral tablet (8 sources) Angiotensin Converting Enzyme Inhibitor Start: 02-17-2022 take 1 tablet by mouth once daily Lisinopril 10 mg tablet Active 10 mg PO DAILY February 17, 2022 12:00am pantoprazole 40 mg delayed release oral tablet (8 sources) Proton Pump Inhibitor Start: 02-17-2022 take 1 tablet by mouth once daily Pantoprazole 40 mg tablet,delayed release (DR/EC) Active 40 mg PO DAILY February 17, 2022 12:00am Problems Problem Classification Problem Date Documented Da te Episodic/Chronic Diabetes mellitus with complications (1 source) Type 2 diabetes mellitus with other circulatory complications; Translations: [Type 2 diabetes mellitus with other circulatory complications] Onset: 01-07-2024 Chronic Disorders of lipid metabolism (1 source) Pure hypercholesterolemi a, unspecified; Translations: [Pure hypercholesterolemi a, unspecified] Onset: 03-24-2024 Chronic E Codes: Fall (8 sources) Fall; Translations: [Unspecified fall, initial encounter] 02-25-2022 Episodic Osteoarthritis (1 source) Unilateral primary osteoarthritis, right hip; Translations: [Unilateral primary osteoarthritis, right hip] Onset: 07-27-2024 Chronic Osteoporosis (1 source) Age-related osteoporosis without current pathological fracture; Translations: [Age-related osteoporosis without current pathological fracture] Onset: 08-09-2024 Chronic Other screening for suspected conditions (not mental disorders or infectious disease) (1 source) Encounter for screening mammogram for malignant neoplasm of breast; Translations: [Encounter for screening mammogram for malignant neoplasm of breast] Onset: 07-15-2024 Episodic Sprains and strains (8 sources) Sprain of wrist; Translations: [Unspecified sprain of left wrist, initial encounter] 02-25-2022 Episodic Superficial injury; contusion (8 sources) Contusion of lower limb; Translations: [Contusion of right lower leg, initial encounter] 02-25-2022 Episodic Results Test Name Value Interpretation Reference Range Facility PT D/C Summary (1)on 025 PT D/C Summary (1) [facility] Physical Therapy [address] [place] [address] / REHABILITATION SERVICES DISCHARGE SUMMARY MR#: [id number] Acct: [id number] Name: AMNA GRAVES Rep #: [id number] : 1950 74 From: Trevor Ramsay DPT, OCS, CSCS Referring DrDimitri: Jefry TOURE TROUBLE TRACER-C McMorrow Status: R EG RCR Insurance: MEDICARE PART A B [facility] Discharge Summary D/C summary: It has been my pleasure to treat AMNA GRAVES referred by TIFFANY Spencer, with the diagnosis of R hip OA for a total of 13 visit(s). Discharge Date: 09/29/24 Please see the following information for a summary of their discharge status. Subjective Subjective: No f/u with doctor. Ex didn't help as much as she hoped but is better 40%. Exercises brought a lot of other benefits as well with social/emotional. Doing exercises and feels better after any exercises. Not walking for fitness at home, Able t do 15-20 min but wants 30 min. Pain limits her but that time is better. Will join and come in 3x/week to do exercises. Pain R hip: Pain Intensity (Out of 10): 4 Overall Improvement % Improvement: 40 Objective Objective/Function: good ambulation with slight R hip wekaness but improving, - trendelenberg sign today on R. Back is stiff with movements but funcitonal. 4- hip abd and flexion strength, mnor discomfort R HS with abd testing standing. Goals Goal 1:: patient feel lateral hip pain is 75% better at 2/10 at worst and manageable Goal Progress: 40% Goal 2:: steps without discomfort Goal Progress: Progressing Goal 3:: slep without intrruption at night Goal Progress: Goal Met, stiff in am Goal 4:: I appropriate HPE to minimize future problems Goal Progress: home, gym Goal 5:: LEFS score 50 Goal Progress: Not Progressing Plan Plan: d/c to HEP and gym ex. Pt to contact doctor if pain improvement stops. D/C Information Discharge Comments: pt to continue gym and home strength and stretching and contact doctor if improvement stops or reverses. d/c sentence: If there are questions or concerns regarding this patient's physical therapy, please feel free to call me at [phone]. Thank you for the referral of this patient. Sincerely, Trevor Ramsay, DPT, OCS, CSCS Balance/Gait/Functio nal tests Balance/Special Test Scores Lower Extremity Functional Score: 38 Improvement % Improvement: 40 09/29/24 1056 CC: Jefry Tavares; Dr. Bria Westbrook MD EBG Signed Normal [facility] Inital Evaluation (1) - PTon 08-17-2024 Inital Evaluation (1) - PT [facility] [address] [place] [address] / REHABILITATION SERVICES INITIAL EVALUATION MR#: [id number] Acct: [id number] Name: AMNA GRAVES Rep #: [id number] : 1950 74 From: Trevor RIVERAT, OCS, CSCS Referring Dr.: Jefry Tavares NP Status: R EG RCR Insurance: MEDICARE PART A B [facility] Patient's Visit Information Visit Information Visit Information: AMNA GRAVES is a 74 year old F referred to Physical Therapy by TIFFANY Spenecr with a diagnosis of R hip OA. Date of Evaluation: 08/17/24 Physical Therapist: Trevor Ramsay DPT, OCS, CSCS Visit Plan Frequency: 2x /Week Duration: 4-6 Weeks Plan: 2x/week for 3-6 weeks for 1. US nonthrmal to trochanteric area, rollout ITB and quad and streetch, leg pull 2. core and hip stabs to HEP TENS and ice if needed(painful at rest) Progress to I overall general ex and walking if tolerated. IE HP: sidelying ITB stretch adn prone quad stretch 30" 5x 2x/day and avoid aggravating activitiy, appropriate sleep position with pillow bw knees and ankles. Subjective Subjective: R hip problems, not awful but x rays showed mild OA. Have a two story house and does stairs all day which are painful and require railing. Can't walk more than a block and half and she used to walk alot. Pain is lateral. Comfortable at rest.has to get up every half hour. Not employed. Spends day being very active with grandkids and two pets, works at [employer]. Is limited being on feet with these things. Limps. Can't walk anymore which was main form of ex. Sleeping is interrupted, hurts to sleep on L side but can't sleep on R due to vertigo. Pain R hip: Pain Intensity (Out of 10): 0 Pain Intensity Range: 0 and 5 Objective Objective: Walking i today without antalgia, transfers without pain table and chair. Steps reciprocally with rail but pain ascending with R 7/10 Max tender R greater trochanter and min into ITB focally. HIP AROM symmetrical and 110 flexion, 50 er, 15 IR and no pain with these. - AHMET, - FADDIR B. Max tight quads B adn mod tight ITB B with + saumya test. B knees adn ankles WFL ROM and strength 4/5...hip strength flexion 4- and abd 3+ and ext 3+, has pain with R hip abd. Max core weakneess and instability with seated testing of hips without UE stabilization. reflexes 2/3 patella adn achilles B sensation WNL to gross light touch. Balance/Special Test Scores Lower Extremity Functional Score: 54 Goals Goal 1:: patient feel lateral hip pain is 75% better at 2/10 at worst and manageable Goal Time Frame: 4-6 Weeks Goal 2:: steps without discomfort Goal Time Frame: 4-6 Weeks Goal 3:: slep without intrruption at night Goal Time Frame: 4-6 Weeks Goal 4:: I appropriate HPE to minimize future problems Goal Time Frame: 4-6 Weeks Goal 5:: LEFS score 50 Goal Time Frame: 4-6 Weeks Rehabilitation Potential Physical Therapy Diagnosis: R hip pain and inflammed in GT area, ppossible bursitis limiting comfortable funciton. Rehabilitation Potential: Fair Anticipated Interventions Patient/Client Instruction: Educate patient on: Condition and Plan of Care For the Purpose of:: To decrease pain, To decrease swelling/inflammatio n, To improve nutrient delivery to tissue, To improve muscle performance and motor function and To increase tolerance to activity/condition/p osition Therapeutic Exercise to Include: Strength training, Flexibilty training, Passive ROM and Active ROM For the Purpose of:: To decrease pain, To increase ROM, To improve nutrient delivery to tissue, To improve muscle performance and motor function, To increase tolerance to activity/condition/p osition and To improve gait and locomotor functions Manual Therapy Techniques to Include: Mobilization, Passive ROM and Soft tissue mobilization For the Purpose of:: To decrease pain, To increase ROM, To improve nutrient delivery to tissue, To improve muscle performance and motor function, To increase tolerance to activity/condition/p osition and To improve ability of physical actions for home/community/work/ leisure TENS: Yes Cryotherapy (ice pack, ice massage): Yes Ultrasound (thermal/non thermal): Yes (nonthermal) For the Purpose of:: To decrease pain, To decrease swelling/inflammatio n and To improve nutrient delivery to tissue Text: Thank you for the opportunity to evaluate your patient. For Medicare and Medicare HMO plans, please review the plan of care and approve it. It will need to be FAXED BACK to us at [phone] for Medicare purposes. For Medicare only, by signing this I certify the plan of care. Please let me know if there are questions or concerns regarding this plan of care. Physician Signature: D ate: 08/17/24 0952 (more content not included)... Normal [facility] Bone density reportOrdered B y: Charles Das on 08-04-2024 Study report Skeletal system DXA [facility] Imaging Services [address] [place], [place] [address] Dexa Bone Density Study MR#: [id number] Acct: [id number] Name: AMNA GRAVES Rep #: [id number] : 1950 F 74 From: Hayden Das MD PCP: Dr. Bria Westbrook MD Status: [facility] CLI Study:Dexa Bone Density Study Date of Exam: 08/03/24 Exam# [id number] Ordering Dr: Bria Westbrook MD PROCEDURE: DEXA BONE DENSITY STUDY 08/03/2024 REASON FOR EXAM: F, age 74 y/o . Postmenopausal. TECHNIQUE: DXA scan of the lumbar spine and both hips, using make and model. REFERENCE LINKS: [facility] Adult Positions COMPARISON: Comparison is made with prior study dated February 20, 2022 FINDINGS: BMD and T-SCORES Lumbar spine: 0.872 g/cm2, T-Score -1.3 L1 through L4 Change from prior: Worsening by 1.4% Left femoral neck: 0.686 g/cm2, T-Score -1.5 Femoral neck comparison data not recommended for monitoring change. Left total hip: 0.804 g/cm2, T-Score -1.1 Change from prior: Loss of 1.8% Right femoral neck: 0.711 g/cm2, T-Score -1.2 Femoral neck comparison data not recommended for monitoring change. Right total hip: 0.817 g/cm2, T-Score -1.0 Change from prior: Loss of 5.1% Fracture Risk Calculation: FRAX (10-year Fracture Risk) Score: FRAX scores should never be reported in a patient with osteoporosis on DEXA or for any patient that is on bone medication. The patient doesmeet the pharmacological treatment recommendations for prevention of osteoporosis BD/Dexa Bone Density Study IMPRESSION: OSTEOPENIA. Recommend follow-up as clinically warranted. Reading Location: [place] [address] CC: Dr. Bria Westbrook MD ~ Director Of Kids: Signed [facility] Dexa Bone Density Studyon Dexa Bone Density Study [facility] Imaging Services [address] [place] [id number] Dexa Bone Density Study MR#: [id number] Acct: [id number] Name: AMNA GRAVES Rep #: [id number] : 1950 F 74 From: Charles dyer MD PCP: Dr. Bria Westbrook MD Status: [facility] Study: Dexa Bone Density Study Date of Exam: 08/03/24 Exam# [id number] Ordering Dr: Bria Westbrook MD PROCEDURE: DEXA BONE DENSITY STUDY 08/03/2024 REASON FOR EXAM: F, age 74 y/o . Postmenopausal. TECHNIQUE: DXA scan of the lumbar spine and both hips, using make and model. [facility]KS: [facility] COMPARISON: Comparison is made with prior study dated February 20, 2022 FINDINGS: BMD and T-SCORES Lumbar spine: 0.872 g/cm2, T-Score -1.3 L1 through L4 Change from prior: Worsening by 1.4% Left femoral neck: 0.686 g/cm2, T-Score -1.5 Femoral neck comparison data not recommended for monitoring change. Left total hip: 0.804 g/cm2, T-Score -1.1 Change from prior: Loss of 1.8% Right femoral neck: 0.711 g/cm2, T-Score -1.2 Femoral neck comparison data not recommended for monitoring change. Right total hip: 0.817 g/cm2, T-Score -1.0 Change from prior: Loss of 5.1% Fracture Risk Calculation: FRAX (10-year Fracture Risk) Score: FRAX scores should never be reported in a patient with osteoporosis on DEXA or for any patient that is on bone medication. The patient doesmeet the pharmacological treatment recommendations for prevention of osteoporosis BD/Dexa Bone Density Study IMPRESSION: OSTEOPENIA. Recommend follow-up as clinically warranted. Reading Location: [place] [address] CC: Dr. Bria Westbrook MD Director Of Kids: Signed Normal [facility] HIP, UNI W/ Pelvis 2-3 Views on 07-18-2024 HIP, UNI W/ Pelvis 2-3 Views [facility] Imaging Services [address] [place] [id number] HIP, UNI W/ Pelvis 2-3 Views MR#: [id number] Acct: [id number] Name: AMNA GRAVES Rep #: [id number] : 1950 F 74 From: Marques Zamorano i DO PCP: Dr. Bria Westbrook MD Status: REG CLI Study: HIP, UNI W/ Pelvis 2-3 Views Date of Exam: Exam# [id number] Ordering Dr: Bria Westbrook MD PROCEDURE: Pelvis and right hip radiographs, three views 07/18/2024 REASON FOR EXAM: PAIN TECHNIQUE: Three views of the pelvis and right hip were obtained. COMPARISON: None. FINDINGS: Three views of the pelvis and right hip were obtained. The bones are osteopenic. Degenerative changes lower lumbar spine. SI joints are intact. The pelvis and proximal femurs are intact. Mild degenerative changes in the hip joints. No acute fracture or dislocation of the right hip. RAD/HIP, UNI W/ Pelvis 2-3 Views IMPRESSION: Osteopenia. No acute bony abnormality of the pelvis/right hip. Mild degenerative changes in the hip joints. If there is persistent pain or clinical concern, follow-up MRI evaluation may be helpful. Reading Location: [facility] CC: Dr. Bria Westbrook MD Director Of Kids: Signed Normal [facility] Breast imaging reportOrdered By: Charles Das on 07-04-2024 Study report [facility] Imaging Services [address] [place] [address] SCRN MAMM (CAD)W/REMI BILAT MR#: [id number] Acct: [id number] Name: AMNA GRAVES Rep #: [id number] : 1950 F 74 From: Hayden Das MD PCP: Dr. Bria Westbrook MD Status: REG CLI Study:SCRN MAMM (CAD)W/REMI BILAT Date of Exa m: 07/04/24 Exam# [id number] Ordering Dr: Jefry Tavares TROUBLE TRACER TROUBLE TRACER-C PROCEDURE: SCRN MAMM (CAD)W/REMI BILAT REASON FOR EXAM: F, Age 74 y/o, maternal grandmother with breast cancer. Routine annual follow-up. TECHNIQUE: Bilateral screening digital breast tomosynthesis with 2D and 3D images. Computeraided detection. COMPARISON: Prior exam(s) dating back to February 26, 2023.. FINDINGS: There are scattered areas of fibroglandular density. Stable examination. No suspicious masses, areas of developing architectural distortion, or suspicious calcifications. BI/SCRN MAMM (CAD)W/REMI BILAT IMPRESSION: BI-RADS 2: BENIGN. RECOMMEND ANNUAL MAMMOGRAPHIC SCREENING. Follow-up code: Routine Follow-up The patient will be notified of the results by letter. Reading Location: [id number] CC: Jefry Tavares; Dr. Bria Westbrook MD ~ Director Of Kids: Signed [facility] SCRN MAMM (CAD)W/REMI BILATo n 07-04-2024 SCRN MAMM (CAD)W/REMI BILAT [facility] Imaging Services [address] [place] [address] SCRN MAMM (CAD)W/REMI BILAT MR#: [id number] Acct: [id number] Name: AMNA GRAVES Rep #: [id number] : 1950 F 74 From: Charles dyer MD PCP: Dr. Bria Westbrook MD Status: [facility] Study: SCRN MAMM (CAD)W/REMI BILAT Date of Exam: 07/26 Exam# [id number] Ordering Dr: Jefry Tavares NP, NP PROCEDURE: SCRN MAMM (CAD)W/REMI BILAT REASON FOR EXAM: F, Age 74 y/o, maternal grandmother with breast cancer. Routine annual follow-up. TECHNIQUE: Bilateral screening digital breast tomosynthesis with 2D and 3D images. Computer aided detection. COMPARISON: Prior exam(s) dating back to February 26, 2023.. FINDINGS: There are scattered areas of fibroglandular density. Stable examination. No suspicious masses, areas of developing architectural distortion, or suspicious calcifications. BI/SCRN MAMM (CAD)W/REMI BILAT IMPRESSION: BI-RADS 2: BENIGN. RECOMMEND ANNUAL MAMMOGRAPHIC SCREENING. Follow-up code: Routine Follow-up The patient will be notified of the results by letter. Reading Location: [place] CC: Jefry Tavares; Dr. Bria Westbrook MD Director Of Kids: Signed Normal [facility] Lipid Profileon 03-04-2024 Cholesterol [Mass/Vol] 160 mg/dL Normal 200 [facility] Comment on above: Order Comment: Order Date: 12/23/23 Order Info: [id number] - LIPID Result Comment: <200 mg/dL Desirable 200-240 mg/dL Borderline >240 mg/dL High Risk Performed By: #### L 500.4100 #### [facility] [address] [place], [address] Cholesterol in HDL [Mass/Vol] 70 mg/dL Normal [facility] Comment on above: Order Comment: Order Date: 12/23/23 Order Info: [id number] - LIPID Result Comment: The drugs N-Acetylcysteine and Metamizole may falsely depress this assay. Reference Range HDL <40 mg/dL Low HDL Cholesterol HDL >or= 60 mg/dL High HDL Cholesterol Performed By: #### L 500.4100 #### [facility] [address] [place], [address] Cholesterol in LDL [Mass/Vol] 73 mg/dL Normal 0-130 [facility] Comment on above: Order Comment: Order Date: 12/23/23 Order Info: [id number] - LIPID Performed By: #### L 500.4100 #### [facility] [address] [place], [address] Cholesterol in VLDL [Mass/Vol] 17 mg/dL Normal 5-40 [facility] Comment on above: Order Comment: Order Date: 12/23/23 Order Info: [id number] - LIPID Performed By: #### L 500.4100 #### [facility] [address] [place], [address] Triglyceride [Mass/Vol] 87 mg/dL Normal [facility] Comment on above: Order Comment: Order Date: 12/23/23 Order Info: [id number] - LIPID Result Comment: The drugs N-Acetylcysteine and Metamizole may falsely depress this assay. Serum Triglycerides Reference Interval Normal <150 mg/dL Borderline high 150 - 199 mg/dL High 200 - 499 mg/dL Very High > or = 500 mg/dL Performed By: #### L 500.4100 #### [facility] [address] [place], [address] Bilirubin, Directon 12-22-19 24 Bilirubin.direct [Mass/Vol] 0.13 mg/dL Normal 0.00-0.30 [facility] Comment on above: Performed By: #### L 501.0900, L501.4700, L500.4050, L501.9520, L500.4100 #### [facility] [address] [place], [address] Comprehensive Metabolic Prof ilon 12-22-2023 Albumin [Mass/Vol] 3.5 g/dL Normal 3.2-5.[address] [facility] Comment on above: Performed By: #### L 501.0900, L501.4700, L500.4050, L501.9520, L500.4100 #### [facility] [address] [place], [address] Albumin/Globulin [Mass ratio] 0.9 {ratio} Normal 0.9-2.4 [facility] Comment on above: Performed By: #### L 501.0900, L501.4700, L500.4050, L501.9520, L500.4100 #### [facility] [address] [place], [address] ALK P 85 U/L Normal 45-117 [facility] Comment on above: Performed By: #### L 501.0900, L501.4700, L500.4050, L501.9520, L500.4100 #### [facility] [address] [place], [address] ALT [Catalytic activity/Vol] 25 U/L Normal 13-56 [facility] Comment on above: Performed By: #### L 501.0900, L501.4700, L500.4050, L501.9520, L500.4100 #### [facility] [address] [place], [address] AST [Catalytic activity/Vol] 20 U/L Normal 15-37 [facility] Comment on above: Performed By: #### L 501.0900, L501.4700, L500.4050, L501.9520, L500.4100 #### [facility] [address] [place], [address] Bilirubin [Mass/Vol] 0.50 mg/dL Normal 0.20-1.00 [facility] Comment on above: Result Comment: For patients on eltrombopag therapy, use of Dimension [place] TBIL is not recommended. Performed By: #### L 501.0900, L501.4700, L500.4050, L501.9520, L500.4100 #### [facility] [address] [place], [address] BUN/CRE 12.0 RATIO Normal 10-20 [facility] Comment on above: Performed By: #### L 501.0900, L501.4700, L500.4050, L501.9520, L500.4100 #### [facility] [address] [place], [address] CA,Total 9.4 mg/dL Normal 8.5-10.1 [facility] Comment on above: Performed By: #### L 501.0900, L501.4700, L500.4050, L501.9520, L500.4100 #### [facility] [address] [place], [address] Chloride [Moles/Vol] 107 mmol/L Normal 98-107 [facility] Comment on above: Performed By: #### L 501.0900, L501.4700, L500.4050, L501.9520, L500.4100 #### [facility] [address] [place], [address] CO2 [Moles/Vol] 27.0 mmol/L Normal 21.0-32.0 [facility] Comment on above: Performed By: #### L 501.0900, L501.4700, L500.4050, L501.9520, L500.4100 #### [facility] [address] [place], [address] Creatinine [Mass/Vol] 1.08 mg/dL High 0.55-1.02 [facility] Comment on above: Result Comment: The validity of the calculated GFR GFRAA in patients over 70 years has not been determined. Clinical correlation is essential. Performed By: #### L 501.0900, L501.4700, L500.4050, L501.9520, L500.4100 #### [facility] [address] [place], [address] EST GFR - AA 64 mL/min Normal >60 [facility] Comment on above: Result Comment: Afri can [place] GFR Calc Performed By: #### L 501.0900, L501.4700, L500.4050, L501.9520, L500.4100 #### [facility] [address] [place], [address] GAP 5 Normal 5-15 [facility] Comment on above: Performed By: #### L 501.0900, L501.4700, L500.4050, L501.9520, L500.4100 #### [facility] [address] [place], [address] GFR/1.73 sq M.predicted among non-blacks MDRD (S/P/Bld) [Vol rate/Area] 53 mL/min/{1.73_m2} Low >60 [facility] Comment on above: Result Comment: Non- GFR Calc Performed By: #### L 501.0900, L501.4700, L500.4050, L501.9520, L500.4100 #### [facility] [address] [place], [address] Globulin (S) [Mass/Vol] 4.1 g/dL Normal 2.2-4.2 [facility] Comment on above: Performed By: #### L 501.0900, L501.4700, L500.4050, L501.9520, L500.4100 #### [facility] [address] [place], [address] Glucose [Mass/Vol] 113 mg/dL High 74-[address] [facility] Comment on above: Result Comment: Fast ing Glucose result from 100 to 125 mg/dL suggests IMPAIRED HOMEOSTASIS per A.D.A. criteria. Performed By: #### L 501.0900, L501.4700, L500.4050, L501.9520, L500.4100 #### [facility] [address] [place], [address] Potassium [Moles/Vol] 3.8 mmol/L Normal 3.5-5.1 [facility] Comment on above: Performed By: #### L 501.0900, L501.4700, L500.4050, L501.9520, L500.4100 #### [facility] [address] [place], [address] Sodium [Moles/Vol] 139 mmol/L Normal 136-[address] [facility] Comment on above: Performed By: #### L 501.0900, L501.4700, L500.4050, L501.9520, L500.4100 #### [facility] [address] [place], [address] T PROT 7.6 g/dL Normal 6.4-8.2 [facility] Comment on above: Performed By: #### L 501.0900, L501.4700, L500.4050, L501.9520, L500.4100 #### [facility] [address] [place], [address] Urea nitrogen [Mass/Vol] 13 mg/dL Normal 7-18 [facility] Comment on above: Performed By: #### L 501.0900, L501.4700, L500.4050, L501.9520, L500.4100 #### [facility] [address] [place], [address] Lipid Profileon 12-22-2023 Cholesterol [Mass/Vol] 233 mg/dL High 200 [facility] Comment on above: Result Comment: <200 mg/dL Desirable 200-240 mg/dL Borderline >240 mg/dL High Risk Performed By: #### L 501.0900, L501.4700, L500.4050, L501.9520, L500.4100 #### [facility] [address] [place], [address] Cholesterol in HDL [Mass/Vol] 64 mg/dL Normal [facility] Comment on above: Result Comment: The drugs N-Acetylcysteine and Metamizole may falsely depress this assay. Reference Range HDL <40 mg/dL Low HDL Cholesterol HDL >or= 60 mg/dL High HDL Cholesterol Performed By: #### L 501.0900, L501.4700, L500.4050, L501.9520, L500.4100 #### [facility] [address] [place], [address] Cholesterol in LDL [Mass/Vol] 146 mg/dL High 0-130 [facility] Comment on above: Performed By: #### L 501.0900, L501.4700, L500.4050, L501.9520, L500.4100 #### [facility] [address] [place], [address] Cholesterol in VLDL [Mass/Vol] 23 mg/dL Normal 5-40 [facility] Comment on above: Performed By: #### L 501.0900, L501.4700, L500.4050, L501.9520, L500.4100 #### [facility] [address] [place], [address] Triglyceride [Mass/Vol] 116 mg/dL Normal [facility] Comment on above: Result Comment: The drugs N-Acetylcysteine and Metamizole may falsely depress this assay. Serum Triglycerides Reference Interval Normal <150 mg/dL Borderline high 150 - 199 mg/dL High 200 - 499 mg/dL Very High > or = 500 mg/dL Performed By: #### L 501.0900, L501.4700, L500.4050, L501.9520, L500.4100 #### [facility] [address] [place], [address] Protein+Creatinine Ratio,Uri neon 12-22-2023 PROT:CRE RATIO TNP Normal 0-200 [facility] Comment on above: Performed By: #### L 501.0900, L501.4700, L500.4050, L501.9520, L500.4100 #### [facility] [address] [place], [address] PROTEIN,UR.RAN. < 6.0 Normal <11.9 [facility] Comment on above: Performed By: #### L 501.0900, L501.4700, L500.4050, L501.9520, L500.4100 #### [facility] [address] [place], [address] UR CREAT 40.90 mg/dL Normal NO RANGE EST. [facility] Comment on above: Performed By: #### L 501.0900, L501.4700, L500.4050, L501.9520, L500.4100 #### [facility] [address] [place], [address] Thyroid Stim Hormone (TSH)on 12-22-2023 TSH 1.380 uIU/mL Normal 0.358-3.740 [facility] Comment on above: Performed By: #### L 501.0900, L501.4700, L500.4050, L501.9520, L500.4100 #### [facility] [address] [place], [address] Basophil percentageOrdered B y: Bria Westbrook on 12-30-2022 Bilirubin [Mass/Vol] 0.40 mg/dL 0.20-1.00 [facility] Comment on above: For patients on eltr ombopag therapy, use of Dimension [place] TBIL is not recommended. Chloride [Moles/Vol] 106 mmol/L 98-107 [facility] Cholesterol [Mass/Vol] 212 mg/dL <200 [facility] Comment on above: <200 mg/dL Desirable 200-240 mg/dL Borderline >240 mg/dL High Risk Glucose [Mass/Vol] 149 mg/dL 74-[address] [facility] Comment on above: Fasting Glucose resu lt greater than or equal to 126 mg/dL suggests DIABETES MELLITUS per A.D.A. criteria. Potassium [Moles/Vol] 3.8 mmol/L 3.5-5.1 [facility] Protein [Mass/Vol] 7.4 g/dL 6.4-8.[address] [facility] Sodium [Moles/Vol] 140 mmol/L 136-[address] [facility] Triglyceride [Mass/Vol] 95 mg/dL <199 [facility] Comment on above: The drugs N-Acetylcy steine and Metamizole may falsely depress this assay.Serum Triglycerides Reference Interval Normal <150 mg/dL Borderline high 150 - 199 mg/dL High 200 - 499 mg/dL Very High > or = 500 mg/dL Direct bilirubinOrdered By: Bria Westbrook on 12-30-2022 Bilirubin.direct [Mass/Vol] 0.09 mg/dL 0.00-0.30 [facility] - Chemistry and C hemistry - challengeOrdered By: Bria Westbrook on 12-30-2022 ALP [Catalytic activity/Vol] 83 U/L 45-117 [facility] ALT [Catalytic activity/Vol] 24 U/L 13-56 [facility] CO2 [Moles/Vol] 28.0 mmol/L 21.0-32.0 [facility] Globulin (S) [Mass/Vol] 3.8 g/dL 2.2-4.2 [facility] Urea nitrogen/Creatinine [Mass ratio] 11.4 mg/mg 10-20 [facility] No Panel InformationOrdered By: Bria Westbrook on 12-30-2022 Estimated GFR (MDRD) Amer 67 mL/min >60 [facility] Comment on above: GFR Calc Estimated GFR (MDRD) Non-Af Amer 55 mL/min >60 [facility] Comment on above: Non- GFR Calc Serum or plasma albumin magdalena urement (mass/volume)Ordered By: Bria Westbrook on 12-30-2022 Albumin [Mass/Vol] 3.6 g/dL 3.2-5.[address] [facility] Serum or plasma calcium magdalena urement (mass/volume)Ordered By: Bria Westbrook on 12-30-2022 Calcium [Mass/Vol] 8.9 mg/dL 8.5-10.[address] [facility] Serum or plasma cholesterol in HDL measurement (mass/volume)Ordered By: Bria Westbrook on 12-30-2022 Cholesterol in HDL [Mass/Vol] 64 mg/dL >40 [facility] Comment on above: The drugs N-Acetylcy steine and Metamizole may falsely depress this assay. Reference Range HDL <40 mg/dL Low HDL Cholesterol HDL >or= 60 mg/dL High HDL Cholesterol Serum or plasma cholesterol in VLDL measurement (mass/volume)Ordered By: Bria Westbrook on 12-30-2022 Cholesterol in VLDL [Mass/Vol] 19 mg/dL 5-40 [facility] Serum or plasma creatinine m easurement (mass/volume)Ordered By: Bria Westbrook on 12-30-2022 Creatinine [Mass/Vol] 1.05 mg/dL 0.55-1.02 [facility] Comment on above: The validity of the calculated GFR & GFRAA in patients over 70 years has not been determined. Clinical correlation is essential. Serum or plasma low density lipoprotein (LDL) cholesterol measurement (mass/volume)Ordered By: Bria Westbrook on 12-30-2022 Cholesterol in LDL [Mass/Vol] 129 mg/dL 0-130 [facility] Serum or plasma urea nitroge n measurement (mass/volume)Ordered By: Bria Westbrook on 12-30-2022 Urea nitrogen [Mass/Vol] 12 mg/dL 7-18 [facility] Thin prep Papanicolaou smear with manual screeningOrdered By: Bria Westbrook on 12-30-2022 Thin prep Papanicolaou smear with manual screening 13 U/L 15-37 [facility] Thin prep Papanicolaou smear with manual screening 6 5-15 [facility] Basophil percentageon 2021 Bilirubin [Mass/Vol] 0.40 mg/dL 0.20-1.00 [facility] Work Phone: Comment on above: For patients on eltr ombopag therapy, use of Dimension [place] TBIL is not recommended. Chloride [Moles/Vol] 105 mmol/L 98-107 [facility] Work Phone: Cholesterol [Mass/Vol] 206 mg/dL <200 [facility] Work Phone: Comment on above: <200 mg/dL Desirable 200-240 mg/dL Borderline >240 mg/dL High Risk Glucose [Mass/Vol] 114 mg/dL 74-[address] [facility] Work Phone: Comment on above: Fasting Glucose resu lt from 100 to 125 mg/dL suggests IMPAIRED HOMEOSTASIS per A.D.A. criteria. Potassium [Moles/Vol] 3.7 mmol/L 3.5-5.1 [facility] Work Phone: Protein [Mass/Vol] 7.3 g/dL 6.4-8.[address] [facility] Work Phone: Sodium [Moles/Vol] 139 mmol/L 136-[address] [facility] Work Phone: Triglyceride [Mass/Vol] 114 mg/dL <199 [facility] Work Phone: Comment on above: The drugs N-Acetylcy steine and Metamizole may falsely depress this assay.Serum Triglycerides Reference Interval Normal <150 mg/dL Borderline high 150 - 199 mg/dL High 200 - 499 mg/dL Very High > or = 500 mg/dL Direct bilirubinon 2 Bilirubin.direct [Mass/Vol] 0.08 mg/dL 0.00-0.30 [facility] Work Phone: Laboratory - Chemistry and C hemistry - challengeon 12-23-2021 ALP [Catalytic activity/Vol] 72 U/L 45-117 [facility] Work Phone: ALT [Catalytic activity/Vol] 27 U/L 13-56 [facility] Work Phone: CO2 [Moles/Vol] 30.0 mmol/L 21.0-32.0 [facility] Work Phone: Globulin (S) [Mass/Vol] 3.9 g/dL 2.2-4.2 [facility] Work Phone: Urea nitrogen/Creatinine [Mass ratio] 12.3 mg/mg 10-20 [facility] Work Phone: No Panel Informationon 12-23 Estimated GFR (MDRD) Amer 73 mL/min >60 [facility] Work Phone: Comment on above: GFR Calc Estimated GFR (MDRD) Non-Af Amer 60 mL/min >60 [facility] Work Phone: Comment on above: Non- GFR Calc Serum or plasma albumin magdalena urement (mass/volume)on 12-23-2021 Albumin [Mass/Vol] 3.4 g/dL 3.2-5.[address] [facility] Work Phone: Serum or plasma calcium magdalena urement (mass/volume)on 12-23-2021 Calcium [Mass/Vol] 8.8 mg/dL 8.5-10.[address] [facility] Work Phone: Serum or plasma cholesterol in HDL measurement (mass/volume)on 12-23-2021 Cholesterol in HDL [Mass/Vol] 62 mg/dL >40 [facility] Work Phone: Comment on above: The drugs N-Acetylcy steine and Metamizole may falsely depress this assay. Reference Range HDL <40 mg/dL Low HDL Cholesterol HDL >or= 60 mg/dL High HDL Cholesterol Serum or plasma cholesterol in VLDL measurement (mass/volume)on 12-23-2021 Cholesterol in VLDL [Mass/Vol] 23 mg/dL 5-40 [facility] Work Phone: Serum or plasma creatinine m easurement (mass/volume)on 12-23-2021 Creatinine [Mass/Vol] 0.97 mg/dL 0.55-1.02 [facility] Work Phone: Comment on above: The validity of the calculated GFR & GFRAA in patients over 70 years has not been determined. Clinical correlation is essential. Serum or plasma low density lipoprotein (LDL) cholesterol measurement (mass/volume)on 12-23-2021 Cholesterol in LDL [Mass/Vol] 121 mg/dL 0-130 [facility] Work Phone: Serum or plasma urea nitroge n measurement (mass/volume)on 12-23-2021 Urea nitrogen [Mass/Vol] 12 mg/dL 7-18 [facility] Work Phone: Thin prep Papanicolaou smear with manual screeningon 12-23-2021 Thin prep Papanicolaou smear with manual screening 16 U/L 15-37 [facility] Work Phone: Thin prep Papanicolaou smear with manual screening 4 5-15 [facility] Work Phone: Vital Signs Date Time Vital Sign Value Performing Clinician Faci lity 02-17-2022 14:22-0400 Respiratory rate 16 /min [facility] Work Phone: 02-17-2022 12:35-0400 Body height 172.72 cm [facility] Work Phone: 02-17-2022 12:35-0400 Body mass index (BMI) [Ratio] 27.3 kg/m2 [facility] Work Phone: 02-17-2022 12:35-0400 Body temperature 96.6 [degF] [facility] Work Phone: 02-17-2022 12:35-0400 Body weight 81.64 kg [facility] Work Phone: 02-17-2022 12:35-0400 Diastolic blood pressure 84 mm[Hg] [facility] Work Phone: 02-17-2022 12:35-0400 Heart rate 84 /min [facility] Work Phone: 02-17-2022 12:35-0400 SaO2% (BldA) [Mass fraction] 96 % [facility] Work Phone: 02-17-2022 12:35-0400 Systolic blood pressure 179 mm[Hg] [facility] Work Phone: Encounters Encounter Date Encounter Type Care Provider Facility Start: 09-29-2024 End: 09-29-[address] Bria Westbrook MD Work Phone: [facility] Work Phone: Start: 09-29-2024 End: 09-29-2024 Discharged Recurring [facility] TROUBLE TRACER-C -Physical Therapy Work Phone: Start: 08-03-2024 End: 08-03-[address] Bria Westbrook MD Work Phone: [facility] Work Phone: Start: 08-03-2024 End: 08-03-[address] Bria Westbrook MD -Outpatient Bone Densitometry Work Phone: Start: 08-03-2024 End: 08-03-2024 ambulatory Bria Westbrook Facility:[facility] Start: 07-18-2024 End: 07-18-[address] Bria Westbrook MD Work Phone: [facility] Work Phone: Start: 07-18-2024 End: 07-18-[address] Bria Westbrook MD -Radiology, [place] Work Phone: Start: 07-18-2024 End: 07-18-2024 ambulatory Bria Westbrook Facility:[facility] Start: 07-04-2024 End: 07-04-[address] Bria Westbrook MD Work Phone: [facility] Work Phone: Start: 07-04-2024 End: 07-04-2024 Patient encounter procedure [facility] TROUBLE TRACER-C -Outpatient Breast Imaging Work Phone: Start: 07-04-2024 End: 07-04-2024 ambulatory [facility] Facility:[facility] Start: 03-04-2024 End: 03-04-2024 ambulatory Bria Westbrook Facility:[facility] Start: 12-22-2023 End: 12-22-2023 ambulatory Bria Westbrook Facility:[facility] Start: 02-26-2023 End: 02-26-2023 ambulatory [facility] Work Phone: Start: 02-26-2023 End: 02-26-2023 Patient encounter procedure [facility]-Outpatient Breast Imaging Work Phone: Start: 12-30-2022 End: 12-30-2022 ambulatory [facility] Work Phone: Start: 12-30-2022 End: 12-30-2022 Patient encounter procedure [facility] Start: 02-20-2022 End: 02-20-2022 ambulatory [facility] Work Phone: Start: 02-20-2022 End: 02-20-2022 Patient encounter procedure [facility]-Outpatient Bone Densitometry Start: 02-17-2022 End: 02-17-2022 Emergency department patient visit [facility]-Emergency Department Start: 12-23-2021 End: 12-23-2021 ambulatory [facility] Work Phone: Start: 12-23-2021 End: 12-23-2021 Patient encounter procedure [facility] Procedures Date Procedure Procedure Detail Performing Clinician Start: 08-03-2024 Dual energy X-ray absorptiometry Dr. Bria Westbrook MD Work Phone: Start: 07-18-2024 Plain x-ray of pelvi s and lower extremity Dr. Bria Westbrook MD Work Phone: Start: 07-04-2024 Screening mammography Francisco Westbrook MD Work Phone: Start: 02-26-2023 Screening mammography Start: 02-20-2022 Dual energy X-ray absorptiometry Start: 02-20-2022 Screening mammography Start: 02-17-2022 Plain X-ray of tibia and fibula Start: 02-17-2022 Plain x-ray of wrist Plan of Treatment Date Care Activity Detail Author Patient Education ED Mechanical Fall ED Muscle Strain, Extremity ED Wrist Sprain [facility] Work Phone: Patient referral [facility] Work Phone: Payers Date Payer Category Payer Self-pay [id number] 2021 Unknown [id number] 2017 Medicare [id number] Unknown [id number] [id number] [id number] Unknown [id number] 2.16.8 [id number] Unknown [id number] 2.16.8 [id number] Unknown [id number] 2.16.8 [id number] Unknown [id number] 2.16.8 [id number] Unknown [id number] 2.16.8 [id number] Social History Date Type Detail Facility Tobacco smoking stat [facility] Unknown if ever smoked [facility] Work Phone: Start: 1950 Sex Assigned At Female [facility] Start: 02-17-2022 [facility] ever smoked [facility] Start: 02-17-2022 [facility] Never smoked tobacco (finding) [facility] Start: 07-15-2024 End: 08-09-2024 Sex Female (finding) [facility] Discharge summary 09-29-2024 Note Date & Type Note Facility 09-29-2024 Discharge summary [facility] Discharge summary 09-29-2024 Note Date & Type Note Facility 09-29-2024 Discharge summary Note Date/Time September 29, 2024 11:11am [facility] Physical Therapy [facility] [address] [place] [address] / REHABILITATION SERVICES DISCHARGE SUMMARY MR#: [id number] Acct: [id number] Name: AMNA GRAVES Rep #: [id number] : 1950 74 From: Trevor Ramsay DPT, OCS, CSCS Referring Dr.: Jefry Tavares Status: REG RCR Insurance: MEDICARE PART A B [facility] Discharge Summary D/C summary: It has been my pleasure to treat AMNA GRAVES referred by TIFFANY Spencer, with the diagnosis of R hip OA for a total of 13 visit(s). Discharge Date: 09/29/24 Please see the following information for a summary of their discharge status. Subjective Subjective: No f/u with doctor. Ex didn't help as much as she hoped but is better 40%. Exercises brought a lot of other benefits as well with social/emotional. Doing exercises and feels better after any exercises. Not walking for fitness at home, Able t do 15-20 min but wants 30 min. Pain limits her but that time is better. Will join and come in 3x/week to do exercises. Pain R hip: Pain Intensity (Out of 10): 4 Overall Improvement % Improvement: 40 Objective Objective/Function: good ambulation with slight R hip wekaness but improving, - trendelenberg sign today on R. Back is stiff with movements but funcitonal. 4- hip abd and flexion strength, mnor discomfort R HS with abd testing standing. Goals Goal 1:: patient feel lateral hip pain is 75% better at 2/10 at worst and manageable Goal Progress: 40% Goal 2:: steps without discomfort Goal Progress: Progressing Goal 3:: slep without intrruption at night Goal Progress: Goal Met, stiff in am Goal 4:: I appropriate HPE to minimize future problems Goal Progress: home, gym Goal 5:: LEFS score 50 Goal Progress: Not Progressing Plan Plan: d/c to HEP and gym ex. Pt to contact doctor if pain improvement stops. D/C Information Discharge Comments: pt to continue gym and home strength and stretching and contact doctor if improvement stops or reverses. d/c sentence: If there are questions or concerns regarding this patient's physical therapy, please feel free to call me at [phone]. Thank you for the referral of thispatient. Sincerely, Trevor Ramsay DPT, OCS, CSCS Balance/Gait/Functional tests Balance/Special Test Scores Lower Extremity Functional Score: 38 Improvement % Improvement: 40 <Electronically signed by Trevor Ramsay DPT, OCS, CSCS> 09/29/24 1056 CC: Jefry [facility] TROUBLE TRACER-C [place]; Dr. Bria Westbrook MD ~ EBG Signed [facility] Work Phone: Radiology Diagnostic study note 07-19-2024 Note Date & Type Note Facility 07-19-2024 Radiology Diagnostic study note [facility] Imaging Services [address] [place], [place] [address] HIP, UNI W/ Pelvis 2-3 Views MR#: [id number] Acct: [id number] Name: AMNA GRAVES Rep #: [id number] : 1950 F 74 From: Fareed Lira DO PCP: Dr. Bria Westbrook MD Status: REG CLI Study:HIP, UNI W/ Pelvis 2-3 Views Date of Ex am: 07/18/24 Exam# [id number] Ordering Dr: Bria Westbrook MD PROCEDURE: Pelvis and right hip radiographs, three views 07/18/2024 REASON FOR EXAM: PAIN TECHNIQUE: Three views of the pelvis and right hip were obtained. COMPARISON: None. FINDINGS: Three views of the pelvis and right hip were obtained. The bones are osteopenic. Degenerative changes lower lumbar spine. SI joints are intact. The pelvis and proximal femurs are intact. Mild degenerative changes in the hip joints. No acute fracture or dislocation of the right hip. RAD/HIP, UNI W/ Pelvis 2-3 Views IMPRESSION: Osteopenia. No acute bony abnormality of the pelvis/right hip. Mild degenerative changes in the hip joints. If there is persistent pain or clinical concern, follow-up MRI evaluation may behelpful. Reading Location: [facility] CC: Dr. Bria Westbrook MD ~ Director Of Kids: Signed [facility] Evaluation note Note Date & Type Note Facility Evaluation note No assessment information availa ble [facility] Work Phone: Reason for referral (narrative) Note Date & Type Note Facility Reason for referral (narrative) No reason for referral information available [facility] Work Phone: Chief Complaint and Reason for Visit Chief Complaint FALL Chief Complaint FALL SCREENING/OSTEO Chief Complaint SCREENING Chief Complaint Admit Date SCREENING July 04, 2024 1:10 pm Chief Complaint Admit Date SCREENING July 04, 2024 1:10 pm pain- RIGHT HIP July 18, 2024 1:2 5pm Chief Complaint Admit Date SCREENING July 04, 2024 1:10 pm pain- RIGHT HIP July 18, 2024 1:2 5pm SCREENING August 03, 2024 1:20 pm Chief Complaint Admit Date SCREENING July 04, 2024 1:10 pm pain- RIGHT HIP July 18, 2024 1:2 5pm SCREENING August 03, 2024 1:20 pm MILD HIP ARTHRITIS/RX HERE September 29 10:00am Advance Directives No Advanced Directives Records Found Advance Directive Response Recorded Date/ Time Name of Medical Power of Director Of Financial Planning Naveen Graves February 17, 2022 1:28pm Living Will Yes February 17 1:28pm Power of Director Of Financial Planning Yes February 17, 2022 1:28pm Advance Directive Response Recorded Date/ Time Living Will Yes October 17th, 20 22 1:28pm Power of Director Of Financial Planning Yes February 17, 2022 1:28pm Summary Purpose Family History No Family History Records Found Additional Source Comments Goals (unrecognized section and content) Goals may be documented in a n alternate sectionGoals may be documented in an alternate sectionGoals may be documented in an alternate sectionGoals may be documented in an alternate sectionGoals may be documented in an alternate sectionGoals may be documented in an alternate sectionGoals may be documented in an alternate sectionGoals may be documented in an alternate sectionGoals may be documented in an alternate section Care Teams (unrecognized sec tion and content) Team Status: Active Member Role Status Dates Dr. Colton Wright MD Family Provider Active Dr. Bria Westbrook MD Primary Care Provider Active Team Status: Inactive Member Role Status Dates Dr. Bria Westbrook MD Primary Care Provider, Attendin g Provider Active Team Status: Inactive Member Role Status Dates Dr. Bria Westbrook MD Primary Care Prov ider, Attending Provider, Referring Provider Active Team Status: Active Member Role Status Dates Dr. Bria Westbrook MD Primary Care Provider Active Team Status: Inactive Member Role Status Dates Dr. Bria Westbrook MD Primary Care Provider Active Start: July 04, 2024 End: July 04, 2024 Jefry Tavares TROUBLE TRACER, TROUBLE TRACER-C Attending Provider Active Start: July 04, 2024 End: July 04, 2024 Jefry Tavares TROUBLE TRACER, TROUBLE TRACER-C Referring Provider Active Start: July 04, 2024 End: July 04, 2024 Team Status: Inactive Member Role Status Dates Dr. Bria Westbrook MD Primary Care Provider Active Start: July 18, 2024 End: July 18, 2024 Dr. Bria Westbrook MD Attending Provider Active Start: July 18, 2024 End: July 18, 2024 Dr. Bria Westbrook MD Referring Provider Active Start: July 18, 2024 End: July 18, 2024 Team Status: Inactive Member Role Status Dates Dr. Bria Westbrook MD Primary Care Provider Active Start: August 03, 2024 End: August 03, 2024 Dr. Bria Westbrook MD Attending Provider Active Start: August 03, 2024 End: August 03, 2024 Dr. Bria Westbrook MD Referring Provider Active Start: August 03, 2024 End: August 03, 2024 Team Status: Inactive Member Role Status Dates Dr. Bria Westbrook MD Primary Care Provider Active Start: September 29, 2024 End: September 29, 2024 Jefry Tavares TROUBLE TRACER TROUBLE TRACER-C Attending Provider Active Start: September 29, 2024 End: September 29, 2024 Jefry Tavares TROUBLE TRACER TROUBLE TRACER-C Referring Provider Active Start: September 29, 2024 End: September 29, 2024 INFORMATION SOURCE (unrecogn ized section and content) DATE CREATED AUTHOR 10/01/2024 [facility] FOR RECORDS PERTAINING TO PATIENTS WHO ARE OR HAVE BEEN ENROLLED IN A CHEMICAL DEPENDENCY/SUBSTANCEABUSE PROGRAM, SOME INFORMATION MAY BE OMITTED. This clinical summary was aggregated from multiple sources. Caution should be exercised in using it in the provision of clinical care. This summary normalizes information from multiple sources, and as a consequence, information in this document may materially change the coding, format and clinical context of patient data. In addition, data may be omitted in some cases. CLINICAL DECISIONS SHOULD BE BASED ON THE PRIMARY CLINICAL RECORDS. [employer] provides no warranty or guarantee of the accuracy or completeness of information in this document.
== END | disposition home or self-care (01) ==
LOC: MRI 14:39
PROVIDERS: PCP Family Medicine; Referring Provider Family Medicine; Visit Provider Family Medicine
DX: M25.551 Pain in right hip (principal)
CPT/HCPCS: 73721

== ENCOUNTER 2025-04-10 11:00 | Outpatient (RCR) | payer MEDICARE, OTHER, SELFPAY ==
--- NOTE | 2025-02-22 14:54 | HP.PTEVAL_ITS ---
Patient's Visit Information Visit Information Visit Information: AMNA SUN is a 74 year old F referred to Physical Therapy by Dr. Jeff Go DO with a diagnosis of Facet Arthritis, IT band syndrome, spondylosis. Date of Evaluation: 02/22/25 Physical Therapist: AVERY Renner Visit Plan Frequency: 2x /Week Duration: 2 Months Plan: 2X/ week for 8 weeks for AT for neutral spine core stability (or a little flexion based due to spondylosis), B hip strength, B IT band and hip flexor stretches with HEP. HEP: green strap Supine off the side Brice stretch and IT band cross over stre tch with green band Subjective Subjective: Pt has always had back pain and had a slipped disc as a young mother. The R hip pain has been there over a number of years. She had PT for her hip but they did not help and the pain was still there. She did all the x- rays. She got an MRI of her back and Dr Liu went over that with her and suggested PT. She is not limping much right now at all. She does not have any weakness in her legs. She has some trouble going up and down the steps (always in R hip). She has some pain at time sitting to standing. She sleeps a lot in her lazy boy because of the pain. She compains of lateral hip pain and hip flexor pain. Pain R hip pain: Pain Intensity (Out of 10): 5 Back pain: Pain Intensity (Out of 10): 5 Objective Objective: Gait: Walks with increase hip drop on the R LE, and R leg does not have as much fluidity with gait Trunk AROM: Flex 100, BW 10%, SB B 50%, Rot B 25% LE MMT: R hip flex 11.8 and L 10 R knee ext 15 and L 11 R knee flex 10 and L 8.2 R hip abd 11.1 and L 11.7 + IT band tightness on the R Palpation on the R (trochanteric bursea) IT Band tight on the R. Balance/Special Test Scores Oswestry Low Back Score: 15 Goals Goal 1:: I HEP Goal Time Frame: 6-8 Weeks Goal 2:: Increase flexibility of B IT bands and B hip flexors Goal Time Frame: 6-8 Weeks Goal 3:: Pt to have 50% improvement in R hip pain and overall back pain during the day Goal Time Frame: 6-8 Weeks Rehabilitation Potential Rehabilitation Potential: Good Anticipated Interventions Patient/Client Instruction: Educate patient on: Condition and Plan of Care For the Purpose of:: To decrease pain, To decrease swelling/inflammation, To increase ROM, To improve nutrient delivery to tissue, To improve muscle performance and motor function, To improve ability to perform ADL's, To increase tolerance to activity/condition/position, To improve performance and independence with ADL's, To decrease level of supervision to perform tasks, To improve gait and locomotor functions, To improve health of tissue, To increase flexibility/ROM and To improve endurance Therapeutic Exercise to Include: Strength training, Endurance training, Body mechanics, Postural training, Flexibilty training, Gait and locomotor training, Active ROM and Dynamic Lumbar Stabilization For the Purpose of:: To decrease pain, To increase ROM, To improve nutrient delivery to tissue, To improve muscle performance and motor function, To increase tolerance to activity/condition/position, To improve performance and independence with ADL's, To decrease level of supervision to perform tasks, To improve ability of physical actions for home/community/work/leisure, To improve gait and locomotor functions, To improve health of tissue, To decrease soft tissue restriction, To improve endurance, To improve balance and To improve safety with gait Text: Thank you for the opportunity to evaluate your patient. For Medicare and Medicare HMO plans, please review the plan of care and approve it. It will need to be FAXED BACK to us at [phone] for Medicare purposes. For Medicare only, by signing this I certify the plan of care. Please let me know if there are questions or concerns regarding this plan of care. Physician Signature: Date:
--- NOTE | 2025-04-10 11:26 | HP.PTDCSUM ---
Discharge Summary D/C summary: It has been my pleasure to treat AMNA SUN referred by Dr. Jeff Go DO, with the diagnosis of Facet Arthritis, IT band syndrome, spondylosis for a total of 10 visit(s). Discharge Date: 04/10/25 Please see the following information for a summary of their discharge status. Subjective Subjective: Water makes it better. She did have a fall on Thursday and the sidewalk was uneven and got her heel caught and went FW and her back hurt but it is sore but not awful and it is improving. She is indep in her HEP. Stretching helps the most with the strap. She is able to do the steps some days and says 40% of the time she will have issues. Pain R hip pain: Pain Intensity (Out of 10): 4 Back pain: Pain Intensity (Out of 10): 5 Overall Improvement % Improvement: 50 Objective Objective/Function: flexibility of B IT bands and B hip flexors: Improved B hip flexor felxibility but R IT band is still very tight and painful. Will continue to stretch with the strap at home Goals Goal 1:: I HEP Goal Progress: Goal Met Goal 2:: Increase flexibility of B IT bands and B hip flexors Goal Progress: Goal Met Goal 3:: Pt to have 50% improvement in R hip pain and overall back pain during the day Goal Progress: Goal Met Plan Plan: DC PT to HEP D/C Information Discharge Comments: DC PT to HEP d/c sentence: If there are questions or concerns regarding this patient's physical therapy, please feel free to call me at [phone]. Thank you for the referral of this patient. Sincerely, Sandra Potter, MPT Balance/Gait/Functional tests Balance/Special Test Scores Oswestry Low Back Score: 16 Improvement % Improvement: 50
== END 2025-04-10 19:00 | disposition home or self-care (01) ==
LOC: PT 11:00
PROVIDERS: PCP Family Medicine; Referring Provider Orthopaedic Surgery; Visit Provider Orthopaedic Surgery
DX: M47.816 Spondylosis without myelopathy or radiculopathy, lumbar region (principal); M76.30 Iliotibial band syndrome, unspecified leg
CPT/HCPCS: 97113; 97162; 97530